=== PATIENT | female | born 1995 | race African-American/Black ===

== ENCOUNTER 2018-04-27 10:36 | Emergency (ER) | payer SELFPAY ==
[2018-04-27 10:37] VITALS: BP 116/74; PULSE 69; RESP 15; TEMP 36.4; O2SAT 100
[2018-04-27] MEDS: hydrOXYzine PAM 25 MG Capsule PO (11:06)
[2018-04-27 11:26] LABS: Anion Gap 8 (5-15); BUN 9 mg/dL (7-18); BUN/Creat Ratio 12.9 RATIO (10-20); Calcium,Total 8.6 mg/dL (8.5-10.1); Chloride 106 mmol/L (98-107); EST Glomerular Filtration Rate 114 mL/min (>60); Est Glom Filt Rate - Afr Amer 138 mL/min (>60); Estimated Creatinine Clearance 117.18 ml/min; Glucose 91 mg/dL (74-106); Potassium 3.9 mmol/L (3.5-5.1); Sodium Level 141 mmol/L (136-145)
[2018-04-27 11:28] LABS: Absolute Lymphocyte Count 1.32 X10^3/ul (0.83-4.51); Absolute Neutrophil Count 1.3 X10^3/uL (2.0-7.7); Basophil# 0.02 X10^3/uL; Basophil% 0.7 % (0-1); Eosinophil# 0.08 X10^3/uL; Eosinophils% 2.7 % (0-5); Hematocrit 39.1 % (37-47); Hemoglobin 12.7 g/dl (12.0-15.0); Lymphocyte # 1.32 X10^3/ul (4.0); Lymphocyte % 45.2 % (19-41); Mean Corp Hgb Conc 32.5 g/gl (32-36); Mean Corpuscular Hgb 28.8 pg (27.0-32.0); Mean Corpuscular Volume 88.7 fL (81-99); Mean Platelet Vol. 10.8 fl (6.2-12.0); Monocyte# 0.21 X10^3/uL; Monocyte% 7.2 % (0-10); Neutrophil # 1.29 X10^3/uL (2.7-7.7); Neutrophil % 44.2 % (47-70); Platelet Count 159 K/mm3 (150-450); RBC Distribution Width CV 12.5 % (11.6-14.6); RBC Distribution Width SD 40.2 fl (35.1-43.9); Red Blood Count 4.41 M/mm3 (4.2-5.4); White Blood Count 2.9 K/mm3 (4.4-11.0)
[2018-04-27 11:31] LABS: POSITIVE COUNT NO; POSITIVE DIFFERENTIAL NO; POSITIVE MORPHOLOGY NO
[2018-04-27 11:35] LABS: Pregnancy, Serum, hCG Quali. NEGATIVE Negative (0-9 Nonpreg)
--- NOTE | 2018-04-27 11:55 | ED.VISSUMM ---
- ER Visit Summary Date of Service: 04/27/18 Chief Complaint: Seizure History of Present Illness: The patient is a 22 F who presents with a seizure that occurred today while at work. Patient states she was under a lot of stress at work. 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 Patient remembers feeling like she was going to have a seizure. Patient then remembers waking up on the floor with paramedics standing over her. Patient denies biting her tongue. Patient denies any stool or urinary incontinence. Patient denies any chest pain or palpitations. Currently, patient admits to a mild left parietal headache. Patient states she did have a bitemporal headache earlier along with the left parietal headache. Patient states she was on a medication for anxiety which helped her seizures. Patient states she recently moved to the area and does not have that medication. Patient does not remember the name of that medication. Physical Examination: Vital signs are stable. Patient is afebrile. Patient is in no acute distress. Oral mucosa is pink and moist. Pupils are equal, round, and reactive to light bilaterally. Extraocular muscles are intact. Neck is supple. Trachea is midline. There is no JVD or lymphadenopathy noted. Heart was regular rate and rhythm. Lungs are clear and equal bilateral. There is good respiratory effort noted. Abdomen is soft. Bowel sounds are normal. There is no tenderness. Cranial nerves II through XII are intact. There are no focal motor or sensory deficits noted. Test Results: CBC and metabolic profile were within normal limits. Serum hCG was negative. Emergency Department Course and Treatment: Patient was given a dose of Vistaril here. Patient had no further seizure activity. Patient was instructed to follow-up with a primary care physician in 5-7 days. Patient was given a short prescription for Vistaril for anxiety. Patient understood and was agreeable with the plan. All questions were answered. Disposition: Discharged home Impression: Breakthrough seizure This note was generated with [employer] dictation software. It may contain incorrect words, spelling, and punctuation that were not noted in review of the chart prior to signing ED Disposition - Plan for ED Patient: Disposition: Home or Assisted Living Chief Complaint: Seizure Diagnosis: Seizure Instructions: ED Seizure Recurrent Prescriptions: hydrOXYzine pamoate capsule [Vistaril pamoate capsule] 25 mg PO TID PRN PRN 5 Days #15 cap PRN Reason: Anxiety Referrals: Elvin Mcconnell MD [STAFF PHYSICIAN] -
[2018-04-27 12:29] VITALS: BP 118/65; PULSE 70; RESP 14; O2SAT 99
== END 2018-04-27 12:33 | disposition home or self-care (01) ==
PROVIDERS: Emergency Provider Emergency Medicine
DX: R56.9 Unspecified convulsions (principal); J45.909 Unspecified asthma, uncomplicated; F20.9 Schizophrenia, unspecified; F31.9 Bipolar disorder, unspecified; F44.81 Dissociative identity disorder; F41.9 Anxiety disorder, unspecified; F43.10 Post-traumatic stress disorder, unspecified; X58.XXXA Exposure to other specified factors, initial encounter; Y93.9 Activity, unspecified; Y92.9 Unspecified place or not applicable; Y99.9 Unspecified external cause status
CPT/HCPCS: 80048; 84703; 85025; 99285; A4216

== ENCOUNTER 2018-05-19 10:34 | Emergency (ER) | payer SELFPAY ==
[2018-05-19 10:35] VITALS: BP 106/71; PULSE 82; RESP 18; TEMP 36.8; O2SAT 100; BMI 22.1
--- NOTE | 2018-05-19 10:49 | ED.DCSUM_ITS ---
- ER Visit Summary Date of Service: 05/19/18 Chief Complaint: Seizure History of Present Illness: The patient is a 22 F who states that she had a seizure. Happened at work today. She states she has a history of pseudoseizures caused by anxiety. 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 She states that she was given hydroxyzine and this helps. She was seen here a couple weeks ago for similar symptoms. She was given Vistaril at that time but she states that she is currently out of that medication. She has no PCP to follow-up with Physical Examination: Vital signs reviewed. HEENT exam unremarkable. Heart is regular rate and rhythm without murmurs. Lungs are clear to auscultation. Abdomen is soft and nontender. Extremities reveal no edema. Skin exam normal. Neurologic exam normal. Test Results: None performed Emergency Department Course and Treatment: Patient was given hydroxyzine here. I will give her the same for home. I will give her the name of the PCP to follow-up with. She has a history of this in the past but I do not feel any imaging or laboratory studies are necessary. Treatment Plan: [] Disposition: Discharge Impression: Pseudoseizure This note was generated with [employer] dictation software. It may contain incorrect words, spelling, and punctuation that were not noted in review of the chart prior to signing ED Disposition - Plan for ED Patient: Chief Complaint: Seizure Referrals: Care Physician,No Primary [Primary Care Provider] -
--- NOTE | 2018-05-19 10:49 | ED.DEP ---
ED Disposition - Plan for ED Patient: Disposition: Home or Assisted Living Chief Complaint: Seizure Instructions: ED Seizure Recurrent Prescriptions: hydrOXYzine pamoate capsule [Vistaril] 50 mg PO TID PRN PRN #30 cap PRN Reason: Anxiety Referrals: Care Physician,No Primary [Primary Care Provider] - Edgar Chiang DO [NON CLINICAL AFFILIATE] -
[2018-05-19] MEDS: hydrOXYzine PAM 25 MG Capsule PO (11:09)
[2018-05-19 11:45] LABS: Bacteria 0 SEEN /hpf (None Seen); Mucous, Urine 0 SEEN /hpf (<or=2+); Red Blood Cells-Urine 0 SEEN /hpf (0-5); Squamous Epithelial Cells - UA 0 SEEN /hpf (5-10)
[2018-05-19 11:46] LABS: Color, Urine Yellow (Yellow); Glucose, Dipstick Normal (Normal); Ketone-Dipstick Negative (Negative); Leukocyte Esterase-Dipstick 25 /ul (Negative); Nitrite-Dipstick Negative (Negative); Occult Blood-Urine Negative /ul (Negative); Protein-Dipstick 30 mg/dl (Negative); Urine Bilirubin Dipstick Negative (Negative); Urine Clarity Clear (Clear); Urine Urobilinogen 1 mg/dl (Normal)
[2018-05-19 11:52] LABS: White Blood Cells 0-5 SEEN /hpf (0-5)
[2018-05-19 11:53] LABS: Internal QC Validated? YES +Cl - CLEAR BKGD; Pregnancy, Urine Negative Negative
[2018-05-19 12:31] VITALS: BP 114/69; PULSE 78; RESP 18; O2SAT 100
== END 2018-05-19 12:33 | disposition home or self-care (01) ==
PROVIDERS: Emergency Provider Emergency Medicine
DX: F41.9 Anxiety disorder, unspecified (principal); R56.9 Unspecified convulsions; F17.290 Nicotine dependence, other tobacco product, uncomplicated; Z79.899 Other long term (current) drug therapy
CPT/HCPCS: 81001; 81025; 99284

== ENCOUNTER 2018-06-10 12:06 | Emergency (ER) | payer MEDICAID, SELFPAY ==
[2018-06-10 12:08] VITALS: BP 119/82; PULSE 75; RESP 12; TEMP 37.2; O2SAT 100
--- NOTE | 2018-06-10 12:57 | ED.VISSUMM ---
- ER Visit Summary Date of Service: 06/10/18 Chief Complaint: Seizure History of Present Illness: The patient is a 22 F with a history of pseudoseizures brought on by anxiety. 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 Per EMS note patient was initially postictal but quickly became alert and oriented. Patient was seen here earlier this month for the same. She was given a prescription for Vistaril which did help her symptoms. She ran out of this medication 1 week ago. She has an appointment to establish a new doctor in 2 days in [place]. Physical Examination: Vital signs unremarkable. Patient sitting upright in bed no acute distress. Head neck examination is unremarkable. There is no tongue bite injury. Heart is regular rate and rhythm. Lung sounds are clear. Abdomen is soft nontender. Neuro exam is normal. Test Results: [] Emergency Department Course and Treatment: Prior visits for similar were reviewed. Patient is given Vistaril here will be given a prescription for a short course. She is to follow-up in 2 days as planned. Patient does state that she has had a prior EEG that did not show any evidence of seizure activity. Treatment Plan: [] Disposition: Discharge Impression: Pseudoseizure This note was generated with [employer] dictation software. It may contain incorrect words, spelling, and punctuation that were not noted in review of the chart prior to signing ED Disposition - Plan for ED Patient: Chief Complaint: Seizure Referrals: Care Physician,No Primary [Primary Care Provider] -
--- NOTE | 2018-06-10 12:59 | ED.DEP ---
ED Disposition - Plan for ED Patient: Disposition: Home or Assisted Living Chief Complaint: Seizure Instructions: ED Seizure Recurrent Prescriptions: Hydroxyzine Pamoate [Vistaril] 50 mg PO TID PRN PRN #30 capsule PRN Reason: Anxiety Additional Instructions: Follow-up on Monday as scheduled.
[2018-06-10 13:22] VITALS: BP 105/67; PULSE 70; RESP 22; O2SAT 100
[2018-06-10] MEDS: hydrOXYzine PAM 25 MG Capsule 50 MG PO (13:22)
== END 2018-06-10 13:26 | disposition home or self-care (01) ==
PROVIDERS: Emergency Provider Emergency Medicine
DX: R56.9 Unspecified convulsions (principal); F20.9 Schizophrenia, unspecified; F31.9 Bipolar disorder, unspecified; F60.9 Personality disorder, unspecified; F41.9 Anxiety disorder, unspecified; Z79.899 Other long term (current) drug therapy
CPT/HCPCS: 99284

== ENCOUNTER 2018-06-30 19:05 | Emergency (ER) | payer MEDICAID, SELFPAY ==
[2018-06-30 19:07] VITALS: BP 113/66; PULSE 92; RESP 18; TEMP 36.8; O2SAT 98; BMI 20.9
--- NOTE | 2018-06-30 19:45 | ED.DEP ---
ED Disposition - Plan for ED Patient: Chief Complaint: Seizure Instructions: ED Seizure Recurrent Referrals: Care Physician,No Primary [Primary Care Provider] -
--- NOTE | 2018-06-30 19:55 | ED.DCSUM_ITS ---
- ER Visit Summary Date of Service: 06/30/18 Chief Complaint: Seizure History of Present Illness: The patient is a 22 F presents after seizure at work. She was at work and EMS was called. She states she was working and then woke up on the floor. She did not bite her tongue. She had no urinary incontinence. She had no injury. She has a history of pseudoseizures secondary to anxiety. She states she took her Vistaril today. She is not feeling anxious now. She denies suicidal ideation. Denies drug use. She has an appointment with her primary care physician this week. She feels back to baseline. Physical Examination: Vitals are stable. Patient is afebrile. Alert no acute distress. HEENT exam is unremarkable. Neck is supple. Lungs are clear and equal bilaterally. Heart is regular rate and rhythm. Abdomen is soft nontender nondistended. Extremities are unremarkable. Skin is warm and dry. No focal neurologic deficit. Remainder of exam is unremarkable. Emergency Department Course and Treatment: BGT was 89 per EMS. Patient feels well and would like to go home. She does not feel anxious. She has an appointment with her primary care physician this week. She will keep this appointment. She is advised return to ED for any worsening complaints. Disposition: Discharge home Impression: Seizure, history of pseudoseizures This note was generated with [employer] dictation software. It may contain incorrect words, spelling, and punctuation that were not noted in review of the chart prior to signing ED Disposition - Plan for ED Patient: Chief Complaint: Seizure Instructions: ED Seizure Recurrent Referrals: Care Physician,No Primary [NON-STAFF] -
[2018-06-30 20:01] VITALS: BP 100/87; PULSE 75; RESP 15; O2SAT 98
== END 2018-06-30 20:02 | disposition home or self-care (01) ==
LOC: ED 19:50
PROVIDERS: Emergency Provider Emergency Medicine; Family Provider Family Medicine; PCP Family Medicine
DX: R56.9 Unspecified convulsions (principal); F32.9 Major depressive disorder, single episode, unspecified; F41.9 Anxiety disorder, unspecified; F17.290 Nicotine dependence, other tobacco product, uncomplicated; Z79.899 Other long term (current) drug therapy
CPT/HCPCS: 99284; A4216

== ENCOUNTER 2018-07-10 10:46 | Emergency (ER) | payer MEDICAID, SELFPAY ==
[2018-07-10 10:47] VITALS: BP 123/76; PULSE 81; RESP 16; TEMP 37.1; O2SAT 99; BMI 20.6
--- NOTE | 2018-07-10 10:54 | ED.VISSUMM ---
- ER Visit Summary Date of Service: 07/10/18 Chief Complaint: Cough, ear pain History of Present Illness: The patient is a 22 F presents to the emergency department with 3 days of URI symptoms. Patient states she developed a scant cough and mild sore throat. States over the past 2 days, she had worsening pain mostly in her left ear. She is unsure if she has had fever but does admit to chills and sweats. She has not taken anything for her symptoms. She denies any shortness of breath. She has no history of immunosuppression. Physical Examination: Exam is relatively unremarkable. Well-appearing female no acute distress. Lungs are clear without wheezes or rhonchi. Posterior oropharynx is widely patent. Left TM does show erythema with distortion of the landmarks but there is no perforation. There is no mastoid tenderness. Right TM is unremarkable. Test Results: [] Emergency Department Course and Treatment: The patient does have evidence of a left otitis media. She will be treated with amoxicillin. I have no suspicion for other dangerous process. She was counseled on concerning symptoms and reasons to return. Treatment Plan: [] Disposition: Discharge Impression: Left otitis media This note was generated with [employer] dictation software. It may contain incorrect words, spelling, and punctuation that were not noted in review of the chart prior to signing ED Disposition - Plan for ED Patient: Chief Complaint: General Illness Instructions: ED Otitis Media Acute Adult Prescriptions: Amoxicillin 500 mg PO TID #30 tab Referrals: Reji Willingham MD [Primary Care Provider] -
== END 2018-07-10 11:02 | disposition home or self-care (01) ==
LOC: ED 11:01
PROVIDERS: Emergency Provider Emergency Medicine; Family Provider Family Medicine; PCP Family Medicine
DX: H66.92 Otitis media, unspecified, left ear (principal); R05 Cough; Z72.0 Tobacco use; Z79.899 Other long term (current) drug therapy
CPT/HCPCS: 99282

== ENCOUNTER 2018-07-14 12:03 | Emergency (ER) | payer MEDICAID, SELFPAY ==
[2018-07-14 12:06] VITALS: BP 116/78; PULSE 61; RESP 12; TEMP 36.8; O2SAT 100; BMI 21.2
[2018-07-14 12:40] VITALS: BP 107/70; PULSE 88; RESP 17; O2SAT 100
[2018-07-14] MEDS: predniSONE 20 MG Tablet 40 MG PO (12:40)
[2018-07-14] MEDS: DiphenhydrAMINE 25 MG Capsule PO (12:40)
--- NOTE | 2018-07-14 13:41 | ED.VISSUMM ---
- ER Visit Summary Date of Service: 07/14/18 Chief Complaint: [Allergic reaction to bee sting] History of Present Illness: The patient is a 22 F [presents the emergency department via EMS with complaint of allergic reaction secondary to a bee sting. 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 Patient recalls seeing a bee flying around the window prior to that. Patient states that she began feeling short of breath and felt hot and flushed therefore she used her EpiPen. Patient called EMS. On arrival she is feeling improved. There was no rash at any point. Patient currently denies any lip or tongue swelling or difficulty breathing.] Physical Examination: [HEENT-PERRLA, EOMI. Cranial nerves II through XII grossly intact. TMs clear. Mucous membranes moist. No adenopathy. Cardiovascular-regular rate and rhythm without murmur or ectopy Lungs-clear to auscultation, chest wall stable without crepitus or subcu emphysema Abdomen-normoactive bowel sounds, soft, nontender, no rebound or rigidity, no peritoneal signs. Extremities-intact ?4, normal range of motion, normal pulses, atraumatic]. Patient has a very small punctate area of erythema on the inner aspect of the elbow otherwise there is no rashes. Test Results: [None indicated] Emergency Department Course and Treatment: [Patient was given prednisone 40 mg p.o. and Benadryl 25 mg p.o. Patient was observed in the department for approximately 2 hours and she had no symptoms of allergic reaction otherwise.] Treatment Plan: [Patient will be given a prescription for prednisone for 3 days] Disposition: [Discharged home in stable condition] Impression: [Allergic reaction to bee sting] This note was generated with [employer] dictation software. It may contain incorrect words, spelling, and punctuation that were not noted in review of the chart prior to signing ED Disposition - Plan for ED Patient: Chief Complaint: Allergic Reaction Referrals: Reji Willingham MD [Primary Care Provider] -
--- NOTE | 2018-07-14 13:43 | ED.DEP ---
ED Disposition - Plan for ED Patient: Chief Complaint: Allergic Reaction Instructions: ED Bite Sting Insect Gen Allergic React Prescriptions: Prednisone [Deltasone] 20 mg PO BID #6 tab Referrals: Reji Willingham MD [Primary Care Provider] - As Needed
[2018-07-14 13:54] VITALS: BP 103/70; PULSE 77; RESP 16; O2SAT 97
== END 2018-07-14 13:54 | disposition home or self-care (01) ==
PROVIDERS: Emergency Provider Emergency Medicine; Family Provider Family Medicine; PCP Family Medicine
DX: T63.441A Toxic effect of venom of bees, accidental (unintentional), initial encounter (principal); R06.02 Shortness of breath; Y92.9 Unspecified place or not applicable; F43.10 Post-traumatic stress disorder, unspecified; F31.9 Bipolar disorder, unspecified; F41.9 Anxiety disorder, unspecified; F90.9 Attention-deficit hyperactivity disorder, unspecified type; Z79.899 Other long term (current) drug therapy
CPT/HCPCS: 99284

== ENCOUNTER 2018-08-01 18:13 | Emergency (ER) | payer MEDICAID, SELFPAY ==
[2018-08-01 18:15] VITALS: BP 113/70; PULSE 70; RESP 17; TEMP 36.5; O2SAT 100; BMI 21.7
--- NOTE | 2018-08-01 18:31 | CT_ITS ---
STUDY: CT ABDOMEN AND PELVIS WITH CONTRAST REASON FOR EXAM: Female, 22 years old. Diffuse abdominal pain. RADIATION DOSAGE (If Supplied By Facility): CTDIvol = ( 7.57 ) mGy, DLP = ( 468.17 ) mGycm TECHNIQUE: Transaxial images were obtained post I.V. administration of 100 ml of Isovue 300 contrast, and oral contrast. Sagittal and coronal images were reconstructed. # of Images: 361 Individualized dose optimization techniques were used for this CT. COMPARISON: None. FINDINGS: The visualized lung bases are unremarkable. The visualized portions of the heart are within normal limits. Normal liver. Normal gallbladder and extrahepatic biliary system. Normal spleen. Normal pancreas. Normal bilateral adrenal glands. There is mild right-sided hydronephrosis. Normal left kidney. The uterus is slightly right of midline. There is a small amount of free fluid within the pelvis which may be physiologic. Normal visualized stomach. Normal small intestine. There is a moderate amount of stool and gas throughout the colon and rectum. The appendix is visualized and appears normal. Normal abdominal aorta. Normal inferior vena cava. Normal retroperitoneum. Normal abdominal wall. Normal osseous structures. CT/Abdomen/Pelvis WITH Contrast IMPRESSION: Moderate amount of stool and gas throughout the colon and rectum. Mild right-sided hydronephrosis of uncertain etiology. Electronically Signed: Olivia Terry MD at 20:57 EDT Tel , Service support ,
--- NOTE | 2018-08-01 18:32 | ED.VISSUMM ---
- ER Visit Summary Date of Service: 08/01/18 Chief Complaint: Abdominal pain History of Present Illness: The patient is a 22 F presenting with right lower quadrant abdominal pain. This has been ongoing for the past 2 days. Pain is sharp in the right lower quadrant. She states it occasionally is in her right lower back as well. She denies dysuria or hematuria. She has nausea with no vomiting. Denies diarrhea or constipation. Denies fever. She has had a normal appetite today. Denies possibility of . Physical Examination: Vitals are stable. Patient is afebrile. Alert no acute distress. HEENT exam is unremarkable. Neck is supple. Lungs are clear and equal bilaterally. Heart is regular rate and rhythm. Abdomen is soft right and left lower quadrant tenderness with no guarding or rebound Extremities are unremarkable. Skin is warm and dry. No focal neurologic deficit. Remainder of exam is unremarkable. Emergency Department Course and Treatment: Patient is given morphine, Zofran IV. CBC, chemistries unremarkable. Urinalysis unremarkable. HCG negative. CT abdomen pelvis shows moderate amount of stool and gas throughout the colon and rectum. Mild right-sided hydronephrosis of uncertain etiology. Patient is resting comfortably on repeat evaluation. She is advised to follow-up with urology. Advised return to the ED for worsening complaints. Disposition: Discharge home Impression: Abdominal pain, constipation, right-sided hydronephrosis This note was generated with [employer] dictation software. It may contain incorrect words, spelling, and punctuation that were not noted in review of the chart prior to signing ED Disposition - Plan for ED Patient: Chief Complaint: Abd Pain Instructions: ED Abdominal Pain Unkn Cause Referrals: Reji Willingham MD [Primary Care Provider] - Maranda Andrea MD [STAFF PHYSICIAN] -
[2018-08-01] MEDS: Ondansetron 4 MG/2 ML Vial IV (18:43)
[2018-08-01] MEDS: Morphine 4 MG/ML Syringe IV (18:43)
[2018-08-01 18:56] LABS: Mucous, Urine 0 SEEN /hpf (<or=2+); Red Blood Cells-Urine 0 SEEN /hpf (0-5)
[2018-08-01 18:58] LABS: Color, Urine Yellow (Yellow); Glucose, Dipstick Normal (Normal); Ketone-Dipstick Negative (Negative); Leukocyte Esterase-Dipstick 25 /ul (Negative); Nitrite-Dipstick Negative (Negative); Occult Blood-Urine Negative /ul (Negative); Protein-Dipstick 30 mg/dl (Negative); Urine Bilirubin Dipstick Negative (Negative); Urine Clarity Sl. Cloudy (Clear); Urine Urobilinogen 1 mg/dl (Normal)
[2018-08-01 19:00] LABS: Absolute Lymphocyte Count 1.68 X10^3/ul (0.83-4.51); Absolute Neutrophil Count 2.3 X10^3/uL (2.0-7.7); Basophil# 0.02 X10^3/uL; Basophil% 0.4 % (0-1); Eosinophil# 0.13 X10^3/uL; Eosinophils% 2.9 % (0-5); Hematocrit 38.2 % (37-47); Hemoglobin 12.4 g/dl (12.0-15.0); Lymphocyte # 1.68 X10^3/ul (4.0); Lymphocyte % 37.8 % (19-41); Mean Corp Hgb Conc 32.5 g/gl (32-36); Mean Corpuscular Hgb 28.2 pg (27.0-32.0); Mean Corpuscular Volume 86.8 fL (81-99); Mean Platelet Vol. 10.5 fl (6.2-12.0); Monocyte# 0.29 X10^3/uL; Monocyte% 6.5 % (0-10); Neutrophil # 2.33 X10^3/uL (2.7-7.7); Neutrophil % 52.4 % (47-70); POSITIVE COUNT NO; POSITIVE DIFFERENTIAL NO; POSITIVE MORPHOLOGY NO; Platelet Count 180 K/mm3 (150-450); RBC Distribution Width CV 12.2 % (11.6-14.6); RBC Distribution Width SD 39.1 fl (35.1-43.9); White Blood Count 4.5 K/mm3 (4.4-11.0)
[2018-08-01 19:20] LABS: Anion Gap 5 (5-15); BUN 9 mg/dL (7-18); Calcium,Total 8.6 mg/dL (8.5-10.1); Chloride 106 mmol/L (98-107); Creatinine, Serum 0.75 mg/dL (0.55-1.02); EST Glomerular Filtration Rate 104 mL/min (>60); Est Glom Filt Rate - Afr Amer 126 mL/min (>60); Estimated Creatinine Clearance 112.01 ml/min; Glucose 85 mg/dL (74-106); Potassium 3.6 mmol/L (3.5-5.1); Sodium Level 138 mmol/L (136-145)
[2018-08-01 19:25] LABS: Bacteria 2+ /hpf (None Seen); Squamous Epithelial Cells - UA 0-5 SEEN /hpf (5-10); White Blood Cells 0-5 SEEN /hpf (0-5)
[2018-08-01 19:37] LABS: Pregnancy, Serum, hCG Quali. NEGATIVE Negative (0-9 Nonpreg)
[2018-08-01 20:16] VITALS: RESP 18
--- NOTE | 2018-08-01 21:19 | ED.DEP ---
ED Disposition - Plan for ED Patient: Chief Complaint: Abd Pain Instructions: ED Abdominal Pain Unkn Cause Referrals: Reji Willingham MD [Primary Care Provider] - Maranda Andrea MD [STAFF PHYSICIAN] -
[2018-08-01 21:32] VITALS: BP 108/78; PULSE 71; RESP 16; O2SAT 98
== END 2018-08-01 21:34 | disposition home or self-care (01) ==
LOC: ED 19:19
PROVIDERS: Emergency Provider Emergency Medicine; Family Provider Family Medicine; PCP Family Medicine
DX: R10.31 Right lower quadrant pain (principal); K59.00 Constipation, unspecified; N13.30 Unspecified hydronephrosis; J45.909 Unspecified asthma, uncomplicated; R56.9 Unspecified convulsions; Z79.899 Other long term (current) drug therapy
CPT/HCPCS: 74177; 80048; 81001; 84703; 85025; 96374; 96375; 99283; Q9967; A4216; J2405

== ENCOUNTER 2018-08-12 15:16 | Emergency (ER) | payer MEDICAID, SELFPAY ==
[2018-08-12 15:17] VITALS: BP 115/77; PULSE 86; RESP 19; TEMP 36.6; O2SAT 100; BMI 21.7
--- NOTE | 2018-08-12 15:45 | ED.VISSUMM ---
- ER Visit Summary Date of Service: 08/12/18 Chief Complaint: Seizure History of Present Illness: The patient is a 22 F who presents after a seizure that occurred today while at work. Patient states that she was not allowed to take her seizure medicine at her normal time because she was at work. Patient states she had a typical seizure for her. Patient does not remember any events during the seizure but remembers waking up after the seizure. Patient states she felt like she was going to have a seizure prior to having the seizure. Patient denies biting her tongue. Patient denies any urinary or stool incontinence. Patient states she takes hydroxyzine for her seizures because they are caused by her anxiety. Physical Examination: Vital signs are stable. Patient is afebrile. Patient is in no acute distress. Cranial nerves II through XII are intact. Strength is 5/5 bilateral in the upper and lower extremities. There are no sensory deficits noted. Pupils are equal, round, reactive to light bilaterally. Extraocular muscles are intact. Oral mucosa is pink and moist. There are no abrasions or lacerations noted. Neck is supple. Trachea is midline. There is no JVD noted. Heart was regular rate and rhythm. Lungs are clear and equal bilateral. There is good respiratory effort noted. Abdomen is soft and nontender. Bowel sounds are normal. The remaining physical exam is within normal limits. Test Results: CBC, basic metabolic profile, urinalysis, urine hCG were obtained and were within normal limits. Emergency Department Course and Treatment: Patient was observed in the emergency department and did not have any further seizure activity. Patient felt better on reevaluation. Patient was instructed to follow-up with her primary care physician in 5-7 days for possible adjustments in her medications. Patient understood and was agreeable with the plan. All questions were answered. Disposition: Discharge home Impression: Seizure disorder with breakthrough seizure This note was generated with [employer] dictation software. It may contain incorrect words, spelling, and punctuation that were not noted in review of the chart prior to signing ED Disposition - Plan for ED Patient: Disposition: Home or Assisted Living Chief Complaint: Seizure Diagnosis: Seizure disorder Instructions: ED Seizure Recurrent Referrals: Reji Willingham MD [Primary Care Provider] -
--- NOTE | 2018-08-12 15:50 | ED.DCSUM_ITS ---
- ER Visit Summary Date of Service: 08/12/18 Chief Complaint: Seizure History of Present Illness: The patient is a 22 F who presents after a seizure that occurred today while at work. Patient states that she was not allowed to take her seizure medicine at her normal time because she was at work. Patient s tates she had a typical seizure for her. Patient does not remember any events during the seizure but remembers waking up after the seizure. Patient states she felt like she was going to have a seizure prior to having the seizure. Patient denies biting her tongue. Patient denies any urinary or stool incontinence. Patient states she takes hydroxyzine for her seizures because they are caused by her anxiety. Physical Examination: Vital signs are stable. Patient is afebrile. Patient is in no acute distress. Cranial nerves II through XII are intact. Strength is 5/5 bilateral in the upper and lower extremities. There are no sensory deficits noted. Pupils are equal, round, reactive to light bilaterally. Extraocular muscles are intact. Oral mucosa is pink and moist. There are no abrasions or lacerations noted. Neck is supple. Trachea is midline. There is no JVD noted. Heart was regular rate and rhythm. Lungs are clear and equal bilateral. There is good respiratory effort noted. Abdomen is soft and nontender. Bowel sounds are normal. The remaining physical exam is within normal limits. Test Results: CBC, basic metabolic profile, urinalysis, urine hCG were obtained and were within normal limits. Emergency Department Course and Treatment: Patient was observed in the emergency department and did not have any further seizure activity. Patient felt better on reevaluation. Patient was instructed to follow-up with her primary care physician in 5-7 days for possible adjustments in her medications. Patient understood and was agreeable with the plan. All questions were answered. Disposition: Discharge home Impression: Seizure disorder with breakthrough seizure This note was generated with [employer] dictation software. It may contain incorrect words, spelling, and punctuation that were not noted in review of the chart prior to signing ED Disposition - Plan for ED Patient: Disposition: Home or Assisted Living Chief Complaint: Seizure Diagnosis: Seizure disorder Instructions: ED Seizure Recurrent Referrals: Reji Willingham MD [Primary Care Provider] -
[2018-08-12 16:10] LABS: Absolute Lymphocyte Count 1.52 X10^3/ul (0.83-4.51); Absolute Neutrophil Count 1.7 X10^3/uL (2.0-7.7); Basophil# 0.02 X10^3/uL; Basophil% 0.6 % (0-1); Eosinophils% 2.8 % (0-5); Hematocrit 33.3 % (37-47); Hemoglobin 11.1 g/dl (12.0-15.0); Lymphocyte # 1.52 X10^3/ul (4.0); Lymphocyte % 42.3 % (19-41); Mean Corp Hgb Conc 33.3 g/gl (32-36); Mean Corpuscular Hgb 28.7 pg (27.0-32.0); Mean Platelet Vol. 10.8 fl (6.2-12.0); Monocyte# 0.23 X10^3/uL; Monocyte% 6.4 % (0-10); Neutrophil # 1.72 X10^3/uL (2.7-7.7); Neutrophil % 47.9 % (47-70); POSITIVE COUNT NO; POSITIVE DIFFERENTIAL NO; POSITIVE MORPHOLOGY NO; Platelet Count 154 K/mm3 (150-450); RBC Distribution Width CV 12.2 % (11.6-14.6); RBC Distribution Width SD 37.8 fl (35.1-43.9); Red Blood Count 3.87 M/mm3 (4.2-5.4); White Blood Count 3.6 K/mm3 (4.4-11.0)
[2018-08-12 16:21] LABS: Anion Gap 7 (5-15); BUN 10 mg/dL (7-18); BUN/Creat Ratio 12.9 RATIO (10-20); Calcium,Total 8.8 mg/dL (8.5-10.1); Chloride 105 mmol/L (98-107); Creatinine, Serum 0.77 mg/dL (0.55-1.02); EST Glomerular Filtration Rate 100 mL/min (>60); Est Glom Filt Rate - Afr Amer 121 mL/min (>60); Glucose 92 mg/dL (74-106); Potassium 3.4 mmol/L (3.5-5.1); Sodium Level 137 mmol/L (136-145)
[2018-08-12 16:58] LABS: Bacteria 0 SEEN /hpf (None Seen); Mucous, Urine 0 SEEN /hpf (<or=2+); Red Blood Cells-Urine 0 SEEN /hpf (0-5)
--- NOTE | 2018-08-12 17:06 | ED.RN ---
pt ambulate to restroom steady, but slow gait. walked back to room and placed back in bed with padded side rails in place. blessing alexander rn
[2018-08-12 17:14] LABS: Internal QC Validated? YES +Cl - CLEAR BKGD; Pregnancy, Urine Negative Negative
[2018-08-12 17:17] LABS: Color, Urine Yellow (Yellow); Glucose, Dipstick Normal (Normal); Ketone-Dipstick Negative (Negative); Leukocyte Esterase-Dipstick 25 /ul (Negative); Nitrite-Dipstick Negative (Negative); Occult Blood-Urine Negative /ul (Negative); Protein-Dipstick 15 mg/dl (Negative); Specific Gravity, Urine 1.015 (1.002-1.030); Urine Bilirubin Dipstick Negative (Negative); Urine Clarity Clear (Clear); Urine Urobilinogen Normal (Normal)
[2018-08-12 17:24] VITALS: BP 94/79; PULSE 94; RESP 24; O2SAT 100
[2018-08-12 17:33] LABS: Squamous Epithelial Cells - UA 5-10 SEEN /hpf (5-10); White Blood Cells 0-5 SEEN /hpf (0-5)
[2018-08-12 19:07] VITALS: BP 106/58; PULSE 72; RESP 15; O2SAT 99
--- NOTE | 2018-08-28 09:21 | EEG_ITS ---
- Electroencephalogram Date of service 08/27/18 This is an 18 channel electroencephalogram performed with EKG reference leads photic stimulation and hyperventilation utilizing the International 10-20 electrode placement protocol on this of seizures. It is noted that the patient is on hydroxyzine as well as Dilantin. Background activity does demonstrate bet a range activity which is likely medication effect, as well as muscle artifact. There appears to be an 8 Hz background activity, this does not clearly attenuate with eye opening however. Hyperventilation is performed for 2 minutes with good effort with no lateralizing or epileptiform changes and the post hyperventilatory phase is unremarkable. The patient experienced wakefulness and sleep during the recording without lateralizing or epileptiform changes and photic stimulation generates a normal symmetric driving response in the posterior leads bilaterally. EKG is sinus throughout. Impression: There is beta range activity which is likely medication effect. There are no lateralizing or epileptiform changes noted.
== END 2018-08-12 19:16 | disposition home or self-care (01) ==
PROVIDERS: Emergency Provider Emergency Medicine; Family Provider Family Medicine; PCP Family Medicine
DX: G40.909 Epilepsy, unspecified, not intractable, without status epilepticus (principal); F41.9 Anxiety disorder, unspecified; Z79.899 Other long term (current) drug therapy
CPT/HCPCS: 80048; 81001; 81025; 85025; 99285

== ENCOUNTER → 2018-08-22 13:10 | Outpatient (CLI) | payer MEDICAID, SELFPAY ==
--- NOTE | 2018-08-22 13:16 | RAD_ITS ---
STUDY: X-RAY - LEFT HAND REASON FOR EXAM: Female, 22 years old. Injury TECHNIQUE: 3 view(s) of the hand. COMPARISON: None. FINDINGS: Normal radiocarpal articulation. Normal distal radioulnar joint. Normal visualized carpal bones. Normal carpal articulations Normal carpometacarpal articulation of the thumb. Normal second through fifth carpometacarpal joints. Normal metacarpi. Normal metacarpophalangeal joint of the thumb. Normal interphalangeal joint of the thumb. Normal proximal and distal phalanges of the thumb. Normal metacarpophalangeal joints of the second through fifth fingers. Normal proximal and distal interphalangeal joints of the second through fifth fingers. Normal phalanges of the second through fifth fingers. The soft tissue structures are unremarkable. RAD/Hand Min 3 Views IMPRESSION: Normal x-ray examination of the hand. No fracture Electronically Signed: Michael Begum MD at 3:17 EST Tel , Service support ,
== END ==
PROVIDERS: Family Provider Family Medicine; PCP Family Medicine; Referring Provider Physician Assistant; Visit Provider Physician Assistant
DX: S60.222A Contusion of left hand, initial encounter (principal); S60.00XA Contusion of unspecified finger without damage to nail, initial encounter; X58.XXXA Exposure to other specified factors, initial encounter; Y93.9 Activity, unspecified; Y92.9 Unspecified place or not applicable; Y99.9 Unspecified external cause status
CPT/HCPCS: 73130

== ENCOUNTER → 2018-08-27 07:55 | Outpatient (CLI) | payer MEDICAID, SELFPAY | PROVIDERS: Family Provider Family Medicine; PCP Family Medicine; Referring Provider Family Medicine; Visit Provider Family Medicine | DX: R56.9 Unspecified convulsions (principal) ==

== ENCOUNTER 2019-01-30 22:13 | Emergency (ER) | payer MEDICAID, SELFPAY ==
[2019-01-30 22:14] VITALS: BP 115/75; PULSE 104; RESP 19; TEMP 37.3; O2SAT 94
--- NOTE | 2019-01-30 22:33 | CT_ITS ---
STUDY: CT BRAIN WITHOUT CONTRAST REASON FOR EXAM: Female, 23 years old. Seizure. RADIATION DOSAGE (If Supplied By Facility): CTDIvol = ( 44.99 ) mGy, DLP = ( 779.24 ) mGycm TECHNIQUE: Transaxial CT imaging of the brain was performed without administration of intravenous contrast material. Multiplanar reformations are submitted for interpretation. Individualized dose optimization techniques were used for this CT. COMPARISON: No relevant priors. FINDINGS: Normal soft tissue structures. Normal calvarium. Normal size ventricles and extra-axial spaces for the patient's age. Normal white matter tracts of the cerebral hemispheres. Normal basal ganglia and thalami. Normal brainstem. Normal cerebellum. There is no intracranial hemorrhage. There are no findings of an acute ischemic infarction. Normal visualized paranasal sinuses. CT/Brain/Head without Contrast IMPRESSION: No CT evidence of acute intracranial hemorrhage. Electronically Signed: Shelby Clark MD at 23:32 EDT , Service support ,
--- NOTE | 2019-01-30 22:34 | CT_ITS ---
STUDY: CT CERVICAL SPINE WITHOUT CONTRAST REASON FOR EXAM: Female, 23 years old. Seizure. RADIATION DOSAGE (If Supplied By Facility): CTDIvol = ( 15.19 ) mGy, DLP = ( 348.04 ) mGycm TECHNIQUE: High resolution transaxial imaging was performed without contrast material. Sagittal and coronal images were reconstructed. Individualized dose optimization techniques were used for this CT. COMPARISON: None FINDINGS: Normal craniovertebral junction. Normal anterior atlantoaxial articulation. Normal odontoid process. Normal cervical lordosis. Normal vertebral bodies and posterior osseous elements. C2-3: Normal endplates. Normal disc height and morphology. Normal central canal and intervertebral neuroforamina. C3-4: Normal endplates. Normal disc height and morphology. Normal central canal and intervertebral neuroforamina. C4-5: Normal endplates. Normal disc height and morphology. Normal central canal and intervertebral neuroforamina. C5-6: Normal endplates. Normal disc height and morphology. Normal central canal and intervertebral neuroforamina. C6-7: Normal endplates. Normal disc height and morphology. Normal central canal and intervertebral neuroforamina. C7-T1: Normal endplates. Normal disc height and morphology. Normal central canal and intervertebral neuroforamina. Normal visualized soft tissue structures. CT/Spine Cervical without Contras IMPRESSION: No CT evidence of acute compression or displaced fracture. Electronically Signed: Shelby Clark MD at 23:35 EDT , Service support ,
[2019-01-30 22:50] LABS: Absolute Lymphocyte Count 2.07 X10^3/ul (0.83-4.51); Absolute Neutrophil Count 3.3 X10^3/uL (2.0-7.7); Basophil# 0.02 X10^3/uL; Basophil% 0.3 % (0-1); Eosinophil# 0.15 X10^3/uL; Eosinophils% 2.5 % (0-5); Hematocrit 37.7 % (37-47); Hemoglobin 12.9 g/dl (12.0-15.0); Lymphocyte # 2.07 X10^3/ul (4.0); Lymphocyte % 34.1 % (19-41); Mean Corp Hgb Conc 34.2 g/gl (32-36); Mean Corpuscular Hgb 29.3 pg (27.0-32.0); Mean Corpuscular Volume 85.5 fL (81-99); Mean Platelet Vol. 11.3 fl (6.2-12.0); Monocyte# 0.55 X10^3/uL; Monocyte% 9.1 % (0-10); Neutrophil # 3.28 X10^3/uL (2.7-7.7); POSITIVE COUNT NO; POSITIVE DIFFERENTIAL NO; POSITIVE MORPHOLOGY NO; Platelet Count 183 K/mm3 (150-450); RBC Distribution Width CV 12.3 % (11.6-14.6); RBC Distribution Width SD 37.9 fl (35.1-43.9); Red Blood Count 4.41 M/mm3 (4.2-5.4); White Blood Count 6.1 K/mm3 (4.4-11.0)
[2019-01-30] MEDS: fentaNYL 100 MCG/2 ML Ampul 25 MCG IV (22:50)
[2019-01-30] MEDS: LORazepam 2 MG/ML Syringe 0.5 MG IV (22:50)
[2019-01-30] MEDS: 0.9% Normal Saline 1,000 ML 150 ML IV (22:50)
[2019-01-30 22:56] LABS: Internal QC Validated? YES +Cl - CLEAR BKGD; Pregnancy, Serum, hCG Quali. NEGATIVE Negative
[2019-01-30 23:02] LABS: Anion Gap 7 (5-15); BUN 9 mg/dL (7-18); Calcium,Total 8.6 mg/dL (8.5-10.1); Chloride 107 mmol/L (98-107); Creatinine, Serum 0.82 mg/dL (0.55-1.02); EST Glomerular Filtration Rate 94 mL/min (>60); Est Glom Filt Rate - Afr Amer 114 mL/min (>60); Estimated Creatinine Clearance 99.47 ml/min; Glucose 104 mg/dL (74-106); Potassium 3.3 mmol/L (3.5-5.1); Sodium Level 140 mmol/L (136-145)
[2019-01-30 23:07] LABS: Phenytoin (Dilantin) Level 1.1 mL (10.0-20.0)
--- NOTE | 2019-01-31 00:52 | ED.VISSUMM ---
- ER Visit Summary Date of Service: 01/31/19 Chief Complaint: Seizure History of Present Illness: The patient is a 23 F reports having 6 seizures tonight. Her last seizure was 2 weeks ago. She is currently on Dilantin and does admit to missing some doses recently. She does not know the last time her Dilantin level was checked. She admits that her seizure activity is never been caught on EEGs in the past. She is currently complaining of neck pain. Of note when I saw this patient in May 2018 she stated that she had a history of pseudoseizures brought on by anxiety. At that time she is on Vistaril. She states her doctor switched her to Dilantin but she has not yet seen another specialist. Physical Examination: Vital signs unremarkable. Patient sitting upright in bed. She is intermittently tearful. Head neck examination reveals muscular tenderness throughout the cervical region. C-collar is in place per EMS. Heart is regular rate and rhythm. Lung sounds are clear. Abdomen is soft and nontender. Neuro exam reveals normal strength and sensation on testing. Test Results: CBC and chemistry studies are significant only for potassium slightly low at 3.3. Her Dilantin level is 1.1. test is negative. Emergency Department Course and Treatment: Patient was given IV Ativan and a small dose of fentanyl for pain. CT scan of the head is normal. CT the C-spine shows no compression fracture. Test results are discussed with the patient. She does admit to missing several doses of her Dilantin. She is given 500 mg IV. She is instructed to take her scheduled dosing and have her level rechecked by her doctor next week. She will be referred to neurology for follow-up. Treatment Plan: [] Disposition: Discharge Impression: 1. Reported seizure with medication noncompliance 2. Cervical muscular strain This note was generated with [employer] dictation software. It may contain incorrect words, spelling, and punctuation that were not noted in review of the chart prior to signing ED Disposition - Plan for ED Patient: Disposition: Home or Assisted Living Instructions: ED Seizure Recurrent Referrals: Stephon Dumont MD [STAFF PHYSICIAN] - As soon as possible Additional Instructions: As discussed, take your Dilantin regularly. Have your Dilantin level rechecked next week.
[2019-01-31 01:10] VITALS: BP 105/57; PULSE 82; RESP 18; O2SAT 97
--- NOTE | 2019-01-31 01:10 | ED.RN ---
THIS NURSE REVIEWED D/C INSTRUCTION WITH PT AND VISITOR. BOTH VERBALIZED UNDERSTANDING OF INSTRUCTIONS. IV D/C. IV CATHETER INTACT. PT TOLERATED WELL. PT ASSISTED TO VEHICLE VIA W/C AND STAFF ASSISTANCE
== END 2019-01-31 01:11 | disposition home or self-care (01) ==
PROVIDERS: Emergency Provider Emergency Medicine
DX: R56.9 Unspecified convulsions (principal); Z91.14 Patient's other noncompliance with medication regimen; S16.1XXA Strain of muscle, fascia and tendon at neck level, initial encounter; X58.XXXA Exposure to other specified factors, initial encounter; J45.909 Unspecified asthma, uncomplicated; K21.9 Gastro-esophageal reflux disease without esophagitis; F31.9 Bipolar disorder, unspecified; F20.9 Schizophrenia, unspecified; F90.9 Attention-deficit hyperactivity disorder, unspecified type
CPT/HCPCS: 70450; 72125; 80048; 80185; 84703; 85025; 96361; 96365; 96375; 99285; J7030

== ENCOUNTER 2019-04-04 21:00 | Emergency (ER) | payer MEDICAID, SELFPAY ==
[2019-04-04 21:01] VITALS: BP 118/72; PULSE 94; RESP 18; TEMP 36.8; O2SAT 99; BMI 21.0
--- NOTE | 2019-04-04 21:05 | RAD_ITS ---
STUDY: X-RAY - LEFT HAND REASON FOR EXAM: Female, 23 years old. Cut index finger with knife. TECHNIQUE: 3 view(s) of the hand. COMPARISON: None. FINDINGS: Normal radiocarpal articulation. Normal distal radioulnar joint. Normal visualized carpal bones. Normal carpal articulations Normal carpometacarpal articulation of the thumb. Normal second through fifth carpometacarpal joints. Normal metacarpi. Normal metacarpophalangeal joint of the thumb. Normal interphalangeal joint of the thumb. Normal proximal and distal phalanges of the thumb. Normal metacarpophalangeal joints of the second through fifth fingers. Normal proximal and distal interphalangeal joints of the second through fifth fingers. Normal phalanges of the second through fifth fingers. The soft tissue structures are unremarkable. There is no opaque foreign body. RAD/Hand Min 3 Views IMPRESSION: Normal x-ray examination of the hand. Electronically Signed: Dario Seymour DO at 21:40 EDT Tel [phone], Service support ,
[2019-04-04] MEDS: Ondansetron ODT 4 MG Tablet PO (21:24)
[2019-04-04] MEDS: Diphth,Pertuss(Acell),Tet Vac 0.5 ML Vial IM (21:25)
--- NOTE | 2019-04-04 21:32 | ED.DCSUM_ITS ---
- ER Visit Summary Date of Service: 04/04/19 Chief Complaint: Finger laceration History of Present Illness: The patient is a 23 F presents to the emergency department laceration to her finger. The patient was in her normal state of health. She was trying to cut lettuce. The knife slipped and incised the distal tip of her left index finger. She is unsure of her last tetanus. She states that she was having numbness in her entire hand. She states that she panicked and called the squad. She is not on anticoagulants. Physical Examination: Exam is relatively unremarkable. The patient does have a partial-thickness superficial laceration that goes through the distal tip of the nail that is approximately 3 cm. The nail is intact. There is no active bleeding. Her two-point determination is preserved. Cap refill is less than 2 seconds. Test Results: [] Emergency Department Course and Treatment: The laceration is not go all the way through the nailbed. The wound was cleaned and explored. I do not feel that this requires primary closure. I did obtain an x-ray which shows no evidence of bony disruption. The patient's tetanus was updated. She was counseled on local wound care. Due to the risk of removing the nail to repair the superficial laceration is much higher than the benefit of actually repairing it. The patient is comfortable with this plan. She will be discharged home. Treatment Plan: [] Disposition: Discharge Impression: 1. Superficial laceration left index finger This note was generated with [employer] dictation software. It may contain incorrect words, spelling, and punctuation that were not noted in review of the chart prior to signing ED Disposition - Plan for ED Patient: Instructions: LACERATION, Small/superficial, Not sutured Referrals: Care Physician,No Primary [Primary Care Provider] -
[2019-04-04] MEDS: Acetaminophen 500 MG Tablet 1000 MG PO (21:47)
[2019-04-04 21:48] VITALS: BP 108/71; PULSE 75; RESP 18; O2SAT 99
== END 2019-04-04 21:51 | disposition home or self-care (01) ==
LOC: ED 21:40
PROVIDERS: Emergency Provider Emergency Medicine
DX: S61.311A Laceration without foreign body of left index finger with damage to nail, initial encounter (principal); W26.0XXA Contact with knife, initial encounter; Y93.9 Activity, unspecified; Y92.9 Unspecified place or not applicable; Y99.9 Unspecified external cause status; Z23 Encounter for immunization; Z79.899 Other long term (current) drug therapy
CPT/HCPCS: 73130; 90471; 90715; 99285

== ENCOUNTER 2019-04-11 15:35 | Emergency (ER) | payer MEDICAID, SELFPAY ==
[2019-04-11 15:35] VITALS: BP 143/96; PULSE 103; RESP 28; TEMP 37.7; O2SAT 100; BMI 20.2
--- NOTE | 2019-04-11 15:48 | ED.VISSUMM ---
- ER Visit Summary Date of Service: 04/11/19 Chief Complaint: Bee sting History of Present Illness: The patient is a 23 F who sustained a bee sting to the right foot. It happened 10 minutes ago. She has a history of anaphylaxis to bee stings. She was stung in the right ankle. She had a neighbor administer an EpiPen and was given a shot of Benadryl by EMS. Her current complaints are of sore throat and trouble swallowing. Her throat feels tight. She currently does not have a PCP but is scheduled to see one in April. Physical Examination: Vital signs are reviewed. Age-appropriate female in no acute respiratory distress. HEENT exam reveals no tongue swelling. There is no uvular swelling. She is handling all of her secretions. Her heart is regular rate and rhythm. Her lungs are clear bilaterally. Abdomen is soft and nontender. Extremities have no edema. Skin exam reveals no rashes. There is no urticaria. Her neurologic exam is normal. Test Results: None performed Emergency Department Course and Treatment: Patient was given solu Medrol and Pepcid IV. She feels much better. After period of observation she had no return of symptoms. She was able to tolerate p.o. The patient was given 4 more days of steroids for home. She will follow-up with her PCP. Treatment Plan: [] Disposition: Discharge Impression: Anaphylaxis to bee sting This note was generated with [employer] dictation software. It may contain incorrect words, spelling, and punctuation that were not noted in review of the chart prior to signing ED Disposition - Plan for ED Patient: Referrals: Care Physician,No Primary [Primary Care Provider] -
[2019-04-11] MEDS: MethylPREDNISolone 125 MG/2 ML Vial IV (16:02)
--- NOTE | 2019-04-11 16:57 | ED.DEP ---
ED Disposition - Plan for ED Patient: Disposition: Home or Assisted Living Instructions: ALLERGIC REACTION, Insect (General) Prescriptions: Prednisone [Deltasone] 40 mg PO DAILY #8 tab Prescription Printed Epi Pen (for allergic rxn) 0.3 mg IM X1 #2 syringe Prescription Printed Referrals: Care Physician,No Primary [Primary Care Provider] -
[2019-04-11 17:40] VITALS: BP 94/55; PULSE 90; RESP 16; O2SAT 100
== END 2019-04-11 17:41 | disposition home or self-care (01) ==
PROVIDERS: Emergency Provider Emergency Medicine
DX: T63.441A Toxic effect of venom of bees, accidental (unintentional), initial encounter (principal); R07.0 Pain in throat; R13.10 Dysphagia, unspecified; T78.2XXA Anaphylactic shock, unspecified, initial encounter; Y92.9 Unspecified place or not applicable; R56.9 Unspecified convulsions; F43.10 Post-traumatic stress disorder, unspecified; X58.XXXA Exposure to other specified factors, initial encounter; Y93.9 Activity, unspecified; Y99.9 Unspecified external cause status; Z79.899 Other long term (current) drug therapy
CPT/HCPCS: 96374; 96375; 99285; A4216; J3490

== ENCOUNTER 2019-06-29 13:45 | Emergency (ER) | payer MEDICAID, SELFPAY ==
[2019-06-29 13:46] VITALS: BP 96/66; PULSE 72; RESP 12; TEMP 36.6; O2SAT 97; BMI 19.8
[2019-06-29] MEDS: Rabies Immune Globulin 150 UNITS/ML 1080 UNITS IM (14:27)
[2019-06-29] MEDS: Rabies Vaccine,Human Diploid 2.5 UNITS Vial IM (14:40)
--- NOTE | 2019-06-29 14:42 | ED.VIS.GEN ---
History of Present Illness Informant: Patient Onset: Today Context: Sudden Onset Timing: Continuous Quality: aching Location: right thumb Current Severity: Mild Maximum Severity: Mild Worsened by: movement/palpation Relieved by: nothing Associated Symptoms: denies Narrative: 23-year-old [id number] female presents to the emergency department with a dog bite to her right thumb. She was walking her neighbor's dog when another neighborhood dog bit her in the thumb. She denies any other injuries. No active bleeding. She denies numbness or tingling or weakness. Her tetanus is up-to-date. She is concerned for rabies. The dog was not wearing a collar and did not appear to have an transaction manager and the police told her to be evaluated with concern for rabies. Prior similar symptoms: No Recent Illness/Hospitalization: No <David Heller - Last Filed: 06/29/19 14:46> <Fabrizio De La Vega - Last Filed: 06/29/19 15:03> Chief Complaint: Bite Past Medical History Prior records reviewed: Yes Past Medical History: None Surgical History: no surgical history Smoking Status: Smoker, status unknown <David Heller - Last Filed: 06/29/19 14:46> <Fabrizio De La Vega - Last Filed: 06/29/19 15:03> - Allergies and Home Meds Allergies/Adverse Reactions: Allergies nut - unspecified Allergy (Verified 06/29/19 13:46) Other onion Allergy (Verified 06/29/19 13:46) Anaphylaxis venom-honey bee Allergy (Verified 06/29/19 13:46) Anaphylaxis cigarette smoke Adverse Reaction (Verified 06/29/19 13:46) Unknown raisins Adverse Reaction (Uncoded 06/29/19 13:46) Unknown Primary Care Physician: Mike Stephens MD [Primary Care Provider] - Review of Systems All systems negative except as indicated Skin: Reports: Wounds <David Heller - Last Filed: 06/29/19 14:46> Physical Exam Vital Signs/Narrative: Vital Signs Temp Pulse Resp BP Pulse Ox 06/29/19 13:46 97.9 F 72 12 96/66 97 Inital Vital Signs reviewed: Yes General: Well nourished, Well developed Head: Normocephalic, Atraumatic Eyes: Perrl, EOMI ENT: Moist mucous membranes Neck: Supple, Nontender Cardiovascular: Regular rate, Regular rhythm Respiratory: No distress, CTA bilaterally, Chest nontender Abdomen: Soft, Nontender, Nondistended, Normal bowel sounds, No masses Back: Nontender, Normal Inspection Extremities: Tenderness - Patient has a puncture wound to the right thumb dorsal aspect just distal to the IP joint. There is no active bleeding. This is a superficial wound. Patient is able to flex and extend at the IP joint actively normally. Capillary refill and sensation are both normal. There is no evidence of acute infection. Skin: Normal color, Trauma Neurological: Alert, Oriented x3 <David Heller - Last Filed: 06/29/19 14:46> Vital Signs/Narrative: Vital Signs Temp Pulse Resp BP Pulse Ox 06/29/19 14:55 16 06/29/19 13:46 97.9 F 72 12 96/66 97 <Fabrizio De La Vega - Last Filed: 06/29/19 15:03> Diagnostic/Tx/Re-eval - Medical Decision Making Patient's tetanus is already up-to-date. The patient has no other injuries besides her thumb. No sutures are indicated. As the patient was concern for rabies the dog did not have an transaction manager we did give the patient the rabies immunoglobulin and vaccine. I injected it into her right hand at the base of her thumb with the remaining going into her right thigh it was a total of 7.182 cc, she was given the vaccine in the deltoid and she will come back in 3, 7 and 14 days. For repeat doses. She will be placed on Augmentin for dog bite. We discussed proper wound care and signs of infection to monitor for and advised that if she develops worsening symptoms prior to returning here for her next rabies vaccination to return to the emergency department <David Heller - Last Filed: 06/29/19 14:46> - Medical Decision Making Stray dog bite to right thumb. Small abrasion. No other abnormal findings. Antibiotics, tetanus immunization, outpatient follow-up. <Fabrizio De La Vega - Last Filed: 06/29/19 15:03> ED Disposition <David Heller - Last Filed: 06/29/19 14:46> <Fabrizio De La Vega - Last Filed: 06/29/19 15:03> - Plan for ED Patient: Disposition: Home or Assisted Living Diagnosis: Dog bite of right thumb, Rabies, need for prophylactic vaccination against Instructions: Dog Bite, Vaccine Information: Rabies Prescriptions: Amoxicillin/Potassium Clav [Augmentin 875-125 Tablet] 1 ea PO BID #10 tab Prescription Printed Referrals: Mike Stephens MD [Primary Care Provider] -
[2019-06-29 14:55] VITALS: RESP 16
== END 2019-06-29 14:55 | disposition home or self-care (01) ==
PROVIDERS: Emergency Provider Physician Assistant Medical; Family Provider Family Medicine; PCP Family Medicine
DX: S61.031A Puncture wound without foreign body of right thumb without damage to nail, initial encounter (principal); W54.0XXA Bitten by dog, initial encounter; Y93.K1 Activity, walking an animal; Y92.9 Unspecified place or not applicable; Y99.9 Unspecified external cause status; Z23 Encounter for immunization; F17.200 Nicotine dependence, unspecified, uncomplicated; Z79.899 Other long term (current) drug therapy
CPT/HCPCS: 90375; 90675; 96372; 99282

== ENCOUNTER 2019-09-10 12:45 | Emergency (ER) | payer MEDICAID, SELFPAY ==
[2019-09-10 12:50] VITALS: BP 120/71; PULSE 71; RESP 14; TEMP 36.8; O2SAT 100; BMI 19.0
--- NOTE | 2019-09-10 13:12 | CT_ITS ---
STUDY: CT BRAIN WITHOUT CONTRAST REASON FOR EXAM: Female, 23 years old. RADIATION DOSAGE (If Supplied By Facility): CTDIvol = ( 44.99 ) mGy, DLP = ( 711.75 ) mGycm TECHNIQUE: Transaxial CT imaging of the brain was performed without administration of intravenous contrast material. Individualized dose optimization techniques were used for this CT. COMPARISON: No relevant priors. FINDINGS: Normal soft tissue structures. Normal calvarium. Normal size ventricles and extra-axial spaces for the patient's age. Normal white matter tracts of the cerebral hemispheres. Normal basal ganglia and thalami. Normal brainstem. Normal cerebellum. There is no intracranial hemorrhage. There are no findings of an acute ischemic infarction. Normal visualized paranasal sinuses. CT/Brain/Head without Contrast IMPRESSION: Normal unenhanced CT scan of the brain. Electronically Signed: Caitlyn Bernstein, at 13:38 EST Tel , Service support ,
[2019-09-10 13:23] LABS: Absolute Lymphocyte Count 1.59 X10^3/uL (0.83-4.51); Absolute Neutrophil Count 1.3 X10^3/uL (2.0-7.7); Basophil# 0.04 X10^3/uL; Basophil% 1.2 % (0-1); Eosinophil# 0.15 X10^3/uL; Eosinophils% 4.4 % (0-5); Hematocrit 39.9 % (37-47); Hemoglobin 13.3 g/dL (12.0-15.0); Lymphocyte # 1.59 X10^3/ul (4.0); Lymphocyte % 46.4 % (19-41); Mean Corp Hgb Conc 33.3 g/dL (32-36); Mean Corpuscular Hgb 29.6 pg (27.0-32.0); Mean Corpuscular Volume 88.7 fL (81-99); Mean Platelet Vol. 11.1 fl (6.2-12.0); Monocyte# 0.31 X10^3/uL; NRBC Flagged by Analyzer 0 % (0-5); Neutrophil # 1.33 X10^3/uL (2.7-7.7); Neutrophil % 38.7 % (47-70); Platelet Count 196 K/mm3 (150-450); RBC Distribution Width CV 12.2 % (11.6-14.6); RBC Distribution Width SD 40.1 fl (35.1-43.9); White Blood Count 3.4 K/mm3 (4.4-11.0)
[2019-09-10 13:28] LABS: Internal QC Validated? YES +Cl - CLEAR BKGD; Pregnancy, Serum, hCG Quali. NEGATIVE Negative
[2019-09-10 13:32] LABS: Anion Gap 5 (5-15); BUN 12 mg/dL (7-18); BUN/Creat Ratio 14.7 RATIO (10-20); Calcium,Total 8.8 mg/dL (8.5-10.1); Chloride 110 mmol/L (98-107); Creatinine, Serum 0.81 mg/dL (0.55-1.02); EST Glomerular Filtration Rate 94 mL/min (>60); Est Glom Filt Rate - Afr Amer 113 mL/min (>60); Estimated Creatinine Clearance 95.39 ml/min; Glucose 94 mg/dL (74-106); Potassium 3.6 mmol/L (3.5-5.1); Sodium Level 139 mmol/L (136-145)
[2019-09-10 14:07] VITALS: BP 116/67; PULSE 68; RESP 16; O2SAT 98
[2019-09-10 14:08] VITALS: BP 116/67; PULSE 68; RESP 16; O2SAT 100
[2019-09-10 15:01] LABS: Phenytoin (Dilantin) Level < 0.4 mL (10.0-20.0)
--- NOTE | 2019-09-10 15:39 | ED.VISSUMM ---
- ER Visit Summary Date of Service: 09/10/19 Chief Complaint: Seizure History of Present Illness: The patient is a 23 F who presents with a seizure that occurred today. Patient states she was walking her friend's dog when she had a seizure. Patient does not remember any of the events around the seizure. Patient states she did not bite her tongue. Patient states she was not incontinent of urine or stool. Patient has a history of seizures. Patient states her prescription for Dilantin ran out and her neurologist increased her Lamictal recently. Patient states her neurologist does not want to restart her Dilantin until her Lamictal level is more therapeutic. Patient thinks she hit her head when she fell. Patient has pain over the left side of her head. This is worse with palpation. Patient describes her pain as sharp. Physical Examination: Vital signs are stable. Patient is afebrile. Patient is in no acute distress. Pupils are equal, round, and reactive to light bilaterally. Extraocular muscles are intact. Conjunctiva is clear. Oral mucosa is pink and moist. There are no oral lacerations or abrasions noted. Neck is supple. Trachea is midline. There is no JVD. Heart was regular rate and rhythm. Lungs are clear and equal bilaterally. Abdomen is soft and nontender. Cranial nerves II through XII are intact. There are no focal motor or sensory deficits noted. There is tenderness over the left parietal area. There is no bony crepitance or step-off noted. No hematoma noted. Test Results: CBC and basic metabolic profile within normal limits. Dilantin level was less than 0.4. Lamictal level was ordered and is pending. Due to the questionable head trauma, CT scan of the brain was obtained. There is no acute intracranial process noted. Emergency Department Course and Treatment: Patient was observed here in the emergency department. Seizure precautions were followed. Patient was feeling better on reevaluation. Patient was instructed to drink plenty of fluids. Patient was instructed to follow-up with her primary care physician and neurologist in 5 to 7 days. Patient understood and was agreeable with the plan. All questions were answered. Disposition: Discharge home Impression: 1. Breakthrough seizure This note was generated with [employer] software. It may contain incorrect words, spelling, and punctuation that were not noted in review of the chart prior to signing ED Disposition - Plan for ED Patient: Disposition: Home or Assisted Living Diagnosis: Seizure Instructions: SEIZURE, Recurrent [Adult] Referrals: Mike Stephens MD [Primary Care Provider] - 5-7 Days
== END 2019-09-10 16:14 | disposition home or self-care (01) ==
PROVIDERS: Emergency Provider Emergency Medicine; Family Provider Family Medicine; PCP Family Medicine
DX: G40.909 Epilepsy, unspecified, not intractable, without status epilepticus (principal); F20.9 Schizophrenia, unspecified; F31.9 Bipolar disorder, unspecified; F41.9 Anxiety disorder, unspecified; F43.10 Post-traumatic stress disorder, unspecified; X58.XXXA Exposure to other specified factors, initial encounter; Y93.9 Activity, unspecified; Y92.9 Unspecified place or not applicable; Y99.9 Unspecified external cause status; F17.290 Nicotine dependence, other tobacco product, uncomplicated; Z79.899 Other long term (current) drug therapy
CPT/HCPCS: 70450; 80048; 80185; 82542; 84703; 85025; 99285; A4216

== ENCOUNTER 2020-03-06 21:54 | Emergency (ER) | payer MEDICAID, SELFPAY ==
[2020-03-06 21:54] VITALS: BP 110/77; PULSE 73; RESP 18; TEMP 37.1; O2SAT 100; BMI 21.4
--- NOTE | 2020-03-06 22:05 | ED.VIS.GEN ---
History of Present Illness Chief Complaint: Head Injury Informant: Patient Narrative: Stated she had an accident today. She had a seizure while standing. She has some soreness in the back of her head and neck. She did not remember the incident. She felt some strange sensation in her head beforehand. Her last seizure was couple weeks ago. She gets them frequently. She has not taken her Dilantin or Lamictal in the last 2 weeks. She stated she is just forgotten to do so. Patient does see a neurologist. Denies any other problems. No other injuries. Blood sugar was normal for EMS. Current severity is mild. She feels almost back to normal other than being tired. She has a history of chronic seizures. - Past Medical History (1) Contusion of left middle finger Status: Acute (2) Contusion of left index finger Status: Acute Past Medical History - Allergies and Home Meds Allergies/Adverse Reactions: Allergies nut - unspecified Allergy (Verified 09/10/19 12:53) Other onion Allergy (Verified 09/10/19 12:53) Anaphylaxis venom-honey bee Allergy (Verified 09/10/19 12:53) Anaphylaxis cigarette smoke Adverse Reaction (Verified 09/10/19 12:53) Unknown raisins Adverse Reaction (Uncoded 09/10/19 12:53) Unknown Primary Care Physician: Mike Stephens MD [Primary Care Provider] - Prior records reviewed: Yes Past Medical History: - - See problem list, seizure disorder Surgical History: no surgical history Lives: With Family Smoking Status: Current every day smoker Alcohol: None Drugs: None Review of Systems General: Denies: Chills, Fever, Sweats Eyes: Denies: Visual changes - bilaterally, Diplopia ENT: Denies: Rhinorrhea, Sore throat Cardiovascular: Denies: Chest pain, Palpitations Respiratory: Denies: Dyspnea, Cough, Dyspnea on exertion Gastrointestinal: Denies: Abdominal pain, Nausea, Vomiting, Diarrhea, Melena, Hematochezia Genitourinary: Denies: Dysuria, Hematuria, Frequency Musculoskeletal: Reports: Neck pain. Denies: Extremity Pain Skin: Denies: Rash, Wounds Neurological: Reports: Headache. Denies: Weakness, Numbness Physical Exam Vital Signs/Narrative: Vital Signs Temp Pulse Resp BP Pulse Ox 03/06/20 21:54 98.7 F 73 18 110/77 100 General: Well nourished, Well developed, No Acute Distress Head: Normocephalic, Atraumatic. Negative for: Trauma, Tenderness Eyes: Perrl, EOMI ENT: Moist mucous membranes, No rhinorrhea Neck: Supple, - - Mild tenderness diffusely without swelling deformity or bony step-off. C-collar. Negative for: Nontender Cardiovascular: Regular rate, Regular rhythm, No murmurs Respiratory: No distress, CTA bilaterally, Chest nontender Abdomen: Soft, Nontender, Nondistended, Normal bowel sounds Back: Nontender, Normal Inspection Extremities: Nontender, No edema Skin: Normal color, No rash Neurological: Alert, Oriented x3, Cranial nerves II-XII grossly intact, Normal Strength, Normal Sensation Psychological: Normal affect, Normal Mood Diagnostic/Tx/Re-eval - Medical Decision Making Patient given a dose of Dilantin and Lamictal. She has not been taking her medications as prescribed. X-ray of the neck obtained. X-ray of the neck is negative. I do not feel she needs a CT of her head. There is no over injury to her head. There is no hematoma or even tenderness. At this time the patient had a breakthrough seizure due to noncompliance with her medication. She is instructed continue taking her medication as scheduled. She stated she will follow-up as an outpatient will do so. She will return if she worsens ED Disposition - Plan for ED Patient: Disposition: Home or Assisted Living Diagnosis: Seizure, Noncompliance with medication regimen Instructions: ED Seizure Recurrent Adult Referrals: Mike Stephens MD [Primary Care Provider] - Additional Instructions: Please follow-up with your neurologist and take your medication daily
--- NOTE | 2020-03-06 22:20 | RAD_ITS ---
HISTORY: SEIZURE, HIT HEAD, NECK PAIN ADDITIONAL HISTORY: None provided. TECHNIQUE: Cervical spine 3 views Number of images including paperwork: 4 COMPARISON: None FINDINGS: VERTEBRAE: No acute fracture. VERTEBRAL ALIGNMENT: No traumatic subluxation. DISKS AND JOINTS: No significant degenerative changes. SOFT TISSUES: Unremarkable paraspinous soft tissues. RAD/Cerv Spine 2 or 3 Views IMPRESSION: No acute osseous abnormality. at 2235 Reported and signed by: Gilda Grady MD Electronically Signed: Gilda Grady MD at 22:34 EDT Tel , Service support ,
[2020-03-06] MEDS: lamoTRIgine 100 MG Tablet 50 MG PO (22:46)
[2020-03-06] MEDS: Phenytoin Na 100 MG Capsule PO (22:46)
[2020-03-06 23:30] VITALS: BP 112/85; PULSE 86; RESP 16; O2SAT 100
== END 2020-03-06 23:37 | disposition home or self-care (01) ==
LOC: ED 22:34
PROVIDERS: Emergency Provider Emergency Medicine; PCP Family Medicine
DX: G40.909 Epilepsy, unspecified, not intractable, without status epilepticus (principal); Z91.14 Patient's other noncompliance with medication regimen; S09.90XA Unspecified injury of head, initial encounter; M54.2 Cervicalgia; S60.032A Contusion of left middle finger without damage to nail, initial encounter; S60.022A Contusion of left index finger without damage to nail, initial encounter; W19.XXXA Unspecified fall, initial encounter; Y93.9 Activity, unspecified; Y92.9 Unspecified place or not applicable; Y99.9 Unspecified external cause status; F17.200 Nicotine dependence, unspecified, uncomplicated; Z79.899 Other long term (current) drug therapy
CPT/HCPCS: 72040; 99285; J7030

== ENCOUNTER 2020-07-12 19:38 | Emergency (ER) | payer MEDICAID, SELFPAY ==
[2020-07-12 19:39] VITALS: BP 123/83; PULSE 86; RESP 22; TEMP 36.8; O2SAT 100; BMI 19.8
--- NOTE | 2020-07-12 19:42 | ED.RN ---
patient stopped seizing.
[2020-07-12] MEDS: LORazepam 2 MG/ML Syringe 1 MG IV (19:43)
--- NOTE | 2020-07-12 19:47 | CT_ITS ---
STUDY: CT BRAIN WITHOUT CONTRAST REASON FOR EXAM: Female, 24 years old. Seizure RADIATION DOSAGE (If Supplied By Facility): CTDIvol = ( 44.99 ) mGy, DLP = ( 745.49 ) mGycm TECHNIQUE: Transaxial CT imaging of the brain was performed without administration of intravenous contrast material. Individualized dose optimization techniques were used for this CT. COMPARISON: September 10 2019 FINDINGS: Brain parenchyma is without focal lesions, mass effect, acute intracranial hemorrhage, extra parenchymal fluid collections, hydrocephalus or herniation. The skull is intact. CT/Brain/Head without Contrast IMPRESSION: 1. Normal CT brain. Electronically Signed: Isabelle Parekh, at 20:38 EDT Tel , Service support ,
[2020-07-12 20:09] LABS: Absolute Lymphocyte Count 1.75 X10^3/uL (0.83-4.51); Absolute Neutrophil Count 5.7 X10^3/uL (2.0-7.7); Basophil# 0.05 X10^3/uL; Basophil% 0.6 % (0-1); Eosinophil# 0.13 X10^3/uL; Eosinophils% 1.6 % (0-5); Hematocrit 35.5 % (37-47); Hemoglobin 11.5 g/dL (12.0-15.0); Lymphocyte # 1.75 X10^3/ul (4.0); Lymphocyte % 21.5 % (19-41); Mean Corp Hgb Conc 32.4 g/dL (32-36); Mean Corpuscular Hgb 28.3 pg (27.0-32.0); Mean Corpuscular Volume 87.4 fL (81-99); Monocyte% 6.1 % (0-10); NRBC Flagged by Analyzer 0 % (0-5); Neutrophil # 5.69 X10^3/uL (2.7-7.7); Neutrophil % 69.8 % (47-70); Platelet Count 215 K/mm3 (150-450); RBC Distribution Width CV 12.2 % (11.6-14.6); RBC Distribution Width SD 39.2 fl (35.1-43.9); Red Blood Count 4.06 M/mm3 (4.2-5.4); White Blood Count 8.2 K/mm3 (4.4-11.0)
[2020-07-12] MEDS: 0.9% Normal Saline 1,000 ML 150 ML IV (20:11)
--- NOTE | 2020-07-12 20:24 | ED.RN ---
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 Per family patient has unresponsive and still seizing when squad released her. Spoke with medic in charge who stated patient was alert and oriented and vitals within all normal limits. Patient was able to continue walking down the street with her boyfriend. no need no further medical treatment. Information relayed to Dr. Pisano
--- NOTE | 2020-07-12 20:30 | RAD_ITS ---
STUDY: X-RAY - CERVICAL SPINE REASON FOR EXAM: Female, 24 years old. seizure, neck pain TECHNIQUE: 3 view(s) of the cervical spine were obtained. COMPARISON: Mar 06 2020 FINDINGS: Normal anterior atlantoaxial articulation. Normal odontoid process. Normal cervical lordosis. Normal vertebral bodies and endplates. Normal disc space heights. Normal visualized intervertebral neuroforamina. The soft tissue structures are unremarkable. RAD/Cerv Spine 2 or 3 Views IMPRESSION: Normal x-ray examination of the visualized cervical spine. Electronically Signed: Isabelle Parekh, at 20:42 EDT Tel , Service support ,
[2020-07-12 20:35] LABS: Anion Gap 5 (5-15); BUN 10 mg/dL (7-18); BUN/Creat Ratio 10.4 RATIO (10-20); Calcium,Total 8.8 mg/dL (8.5-10.1); Chloride 108 mmol/L (98-107); Creatinine, Serum 0.96 mg/dL (0.55-1.02); EST Glomerular Filtration Rate 77 mL/min (>60); Est Glom Filt Rate - Afr Amer 93 mL/min (>60); Estimated Creatinine Clearance 80.68 ml/min; Glucose 89 mg/dL (74-106); Internal QC Validated? YES +Cl - CLEAR BKGD; Potassium 3.6 mmol/L (3.5-5.1); Pregnancy, Serum, hCG Quali. NEGATIVE Negative; Sodium Level 139 mmol/L (136-145)
[2020-07-12 20:47] VITALS: BP 103/65; PULSE 83; RESP 18; O2SAT 100
[2020-07-12 20:50] LABS: Phenytoin (Dilantin) Level 0.5 mL (10.0-20.0)
--- NOTE | 2020-07-12 21:08 | ED.VISSUMM ---
- ER Visit Summary Date of Service: 07/12/20 Chief Complaint: [Seizure] History of Present Illness: The patient is a 24 F [presents the emergency department with seizure that started about half an hour ago. The boyfriend initially gives all the history. Patient apparently was at a friend's house and when she fell over and started seizing. Apparently the seizure lasted about 20 minutes and EMS was called. From what the boyfriend says EMS arrived and evaluated the patient and while she was still unconscious they left. Boyfriend states that he put his girlfriend in his truck and brought her into the ER for evaluation. On arrival to ER patient with seizure activity. While nurses obtained IV patient stopped seizing as I was evaluating her and she immediately returned to a normal level of consciousness and was answering questions appropriately including all her medical history including her medications that she is on. Patient apparently has not been taking her seizure medicines because she thinks she might be and she is trying to get . She denies recent illness. She denies any recent head trauma although she does complain of a headache and neck pain. Patient states that her seizures oftentimes are related to stress but also that she gets them sometimes when she sees blinking lights.] Physical Examination: [HEENT-PERRLA, EOMI. Cranial nerves II through XII grossly intact. TMs clear. Mucous membranes moist. No adenopathy. No external evidence of trauma to her head. No C-spine tenderness on palpation. No bite wounds noted to the tongue or mouth. Cardiovascular-regular rate and rhythm without murmur or ectopy Lungs-clear to auscultation, chest wall stable without crepitus or subcu emphysema Abdomen-normoactive bowel sounds, soft, nontender, no rebound or rigidity, no peritoneal signs. Neuro txik-fwxonf-idtt and heel abdi testing within normal limits, negative Romberg, negative pronator, fundi benign. Extremities-intact ?4, normal range of motion, normal pulses, atraumatic] Test Results: [CT scan of the brain without contrast was unremarkable. X-rays of the C-spine were negative. CBC with differential showed a white of 8.2, hemoglobin 11.5, hematocrit 35, platelets 215. Chemistries unremarkable. hCG was negative. Dilantin was 0.5.] Emergency Department Course and Treatment: [Discussed results with patient and she believes she still despite a negative test here. Patient states that she took a PT test at home and it was positive. Patient states that she does not want to take her seizure medication because she is try to get . She states that she needs to get refills on her medications.] Patient did receive 1 mg of Ativan on arrival. There is no further seizure activity. Treatment Plan: [Advised to follow-up with her primary care physician and neurologist within next 3 to 5 days.] Disposition: [Discharged home in stable condition] Impression: [Recurrent seizure in an adult Noncompliant with seizure medications] This note was generated with [employer] dictation software. It may contain incorrect words, spelling, and punctuation that were not noted in review of the chart prior to signing ED Disposition - Plan for ED Patient: Referrals: Mike Stephens MD [Primary Care Provider] -
--- NOTE | 2020-07-12 21:13 | ED.DEP ---
ED Disposition - Plan for ED Patient: Instructions: ED Seizure Recurrent Adult Referrals: Mike Stephens MD [Primary Care Provider] - 3-5 Days Additional Instructions: see your neurologist
[2020-07-12 21:21] VITALS: BP 100/67; PULSE 72; RESP 14; O2SAT 100
[2020-07-13 15:41] LABS: Bedside Glucose 93 mg/dL (70-110)
== END 2020-07-12 21:24 | disposition home or self-care (01) ==
LOC: ED 20:03
PROVIDERS: Emergency Provider Emergency Medicine; PCP Family Medicine
DX: R56.9 Unspecified convulsions (principal); Z91.14 Patient's other noncompliance with medication regimen; M54.2 Cervicalgia; Z79.899 Other long term (current) drug therapy
CPT/HCPCS: 70450; 72040; 80048; 80185; 82962; 84703; 85025; 96361; 96374; 99283; J7030; A4216

== ENCOUNTER 2020-07-26 19:23 | Emergency (ER) | payer MEDICAID, SELFPAY ==
[2020-07-26 19:25] VITALS: BP 111/74; PULSE 82; RESP 16; TEMP 36.7; O2SAT 99; BMI 21.9
--- NOTE | 2020-07-26 19:56 | ED.VIS.GEN ---
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 According to paramedics she had 7 or 8, the patient states she does not think so, she feels like she just had 2 or 3. She has a history of a seizure disorder. She takes phenytoin and Lamictal. She ran out of the phenytoin and did not have it for about a month. She restarted it about a week ago or less, she is new to this area, and had a temporary prescription. She has someone to follow-up with. She states that she did not want to come to the hospital and told paramedics that they brought her anyway. There is no one else with her another details are unknown. She takes phenytoin 100 mg 3 times daily. She states right before she had this last seizure, she took 4 caplets, 400 mg. She just took that about 20 minutes prior to arrival here. She states she feels fine now. Paramedics brought her because she was postictal and not able to refuse transport at the time. She denies using IV or of any other illicit drugs, just the prescriptions that she is prescribed, which in addition to the others is an antidepressant. She denies any suicidal ideation. - Past Medical History (1) Seizure disorder Status: Chronic Past Medical History - Allergies and Home Meds Allergies/Adverse Reactions: Allergies nut - unspecified Allergy (Verified 07/26/20 19:28) Other onion Allergy (Verified 07/26/20 19:28) Anaphylaxis venom-honey bee Allergy (Verified 07/26/20 19:28) Anaphylaxis cigarette smoke Adverse Reaction (Verified 07/26/20 19:28) Unknown raisins Adverse Reaction (Uncoded 07/26/20 19:28) Unknown Primary Care Physician: Mike Stephens MD [Primary Care Provider] - 3-5 Days if not improving Surgical History: no surgical history Smoking Status: Current every day smoker Review of Systems General: Denies: Chills, Fever, Sweats Eyes: Denies: Visual changes - bilaterally, Diplopia ENT: Denies: Rhinorrhea, Sore throat Cardiovascular: Denies: Chest pain, Palpitations Respiratory: Denies: Dyspnea, Cough, Dyspnea on exertion Gastrointestinal: Denies: Abdominal pain, Nausea, Vomiting, Diarrhea, Melena, Hematochezia Genitourinary: Denies: Dysuria, Hematuria, Frequency Musculoskeletal: Denies: Back pain, Swelling, Extremity Pain Skin: Denies: Rash, Wounds Neurological: Denies: Headache, Weakness, Numbness Physical Exam Vital Signs/Narrative: Vital Signs Temp Pulse Resp BP Pulse Ox 07/26/20 19:25 98.1 F 82 16 111/74 99 Inital Vital Signs reviewed: Yes General: Well nourished, Well developed, No Acute Distress Head: Normocephalic, Atraumatic Eyes: Perrl, EOMI Respiratory: No distress - Speaking in full sentences Extremities: Nontender, No edema Skin: Normal color, No rash, No Trauma Neurological: Alert, Oriented x3, Cranial nerves II-XII grossly intact, Normal Strength, Normal Sensation, Normal Gait Psychological: Normal affect, Normal Mood Diagnostic/Tx/Re-eval - Medical Decision Making I discussed with patient options, such as drawing a phenytoin level and if low, giving her an IV load to bring her up to therapeutic levels. She understood the logic of this, but refuses/declines, and would like to be discharged. She did not hit her head and has no sign of head trauma. She has someone to follow-up with. Therefore at her request she is discharged and reminded not to drive. ED Disposition - Plan for ED Patient: Disposition: Home or Assisted Living Diagnosis: Breakthrough seizure, Seizure disorder Instructions: ED Seizure Recurrent Adult Referrals: Mike Stephens MD [Primary Care Provider] - 3-5 Days if not improving
== END 2020-07-26 20:01 | disposition home or self-care (01) ==
LOC: ED 19:57
PROVIDERS: Emergency Provider Emergency Medicine; PCP Family Medicine
DX: G40.909 Epilepsy, unspecified, not intractable, without status epilepticus (principal); F17.200 Nicotine dependence, unspecified, uncomplicated; Z79.899 Other long term (current) drug therapy
CPT/HCPCS: 99283

== ENCOUNTER 2021-02-28 00:12 | Emergency (ER) | payer MEDICAID, SELFPAY ==
[2021-02-28 00:15] VITALS: BP 111/72; PULSE 80; RESP 22; TEMP 37.3; O2SAT 97; BMI 19.1
--- NOTE | 2021-02-28 00:40 | EX.ED.DYSGE1 ---
HPI History of Present Illness Chief Complaint: Abd Pain Narrative Narrative: Patient presents with left lower quadrant sharp abdominal pain. Started 5 minutes ago. It is gone at this time she feels back to normal. She is unsure what that happened. She is 6 weeks by dates and ultrasound last week. She stated she had intrauterine seen on ultrasound with normal heart tones. This is her first . Denies vaginal bleeding. Denies any urinary symptoms. She felt fine before this came on. No home treatment PFSH PFSH Medical History Anxiety Asthma PTSD (post-traumatic stress disorder) Schizophrenia Seizures Home Medications epinephrine 0.3 mg IM X1 PRN 06/30/18 [History Last Taken Unknown] albuterol sulfate 1 - 2 puff INHALATION Q4H PRN PRN 08/12/18 [History Last Taken 08/12/18] phenytoin sodium extended 100 mg capsule 50 mg PO TID 30 Days #60 cap 08/22/18 [History Last Taken 07/26/20] [id number] [] 1 tab PO DAILY 02/28/21 [History Last Taken Unknown] Allergy/AdvReac Type Severity Reaction Status Date / Time nut - unspecified Allergy Other Verified 02/28/21 00:14 onion Allergy Anaphylaxis Verified 02/28/21 00:14 venom-honey bee Allergy Anaphylaxis Verified 02/28/21 00:14 cigarette smoke AdvReac Unknown Verified 02/28/21 00:14 raisins AdvReac Unknown Uncoded 02/28/21 00:14 Family History Mother Seizures Mental health problem Brother Seizures Surgical History History of tonsillectomy Social History Smoking Status: Current every day smoker alcohol intake: never ROS ROS ED ROS Narrative ROS General: Denies fever, chills, sweats Eyes: Denies visual changes, blurred vision, double vision ENT: Denies ear pain, rhinorrhea, sore throat Cardiovascular: Denies chest pain, palpitations, heart racing Respiratory: Denies dyspnea, cough, sputum, dyspnea on exertion, orthopnea,PND GI: See HPI : Denies dysuria, hematuria, frequency Musculoskeletal: Denies myalgias, arthralgias, neck pain, back pain Skin: Denies rash, abscess, abrasions Neuro: Denies headache, weakness, paresthesia Psych: Denies depression, anxiety Endo: Denies polyuria, polydipsia, polyphagia Heme: Denies easy bruising, easy bleeding, lymphadenopathy Allergy: Denies hives, swelling EXAM Physical Exam Narrative Exam Narrative: Vital signs reviewed General: Well-nourished well-developed Head: Normocephalic atraumatic Eyes: Pupils equal round and reactive to light extraocular movements intact ENT: TMs clear no hemotympanum no trauma Neck: Nontender full range of motion Cardiovascular: Regular rate rhythm no murmurs normal S1-S2 Respiratory: No distress clear to auscultation bilaterally chest nontender Abdomen: Soft nontender nondistended normal bowel sounds no masses Back: Nontender no CVA tenderness Extremities: Nontender active range of motion ?4 extremities no trauma Skin: Normal color no trauma Neuro alert oriented cranial nerves II through XII intact normal strength sensation reflexes Const Vital Signs: 02/28/21 00:15 Temperature 99.1 F Temperature Source Oral Pulse Rate 80 Respiratory Rate 22 H Blood Pressure 111/72 Blood Pressure Mean 85 Pulse Ox 97 Oxygen Delivery Method Room Air MDM MDM MDM Narrative Medical decision making narrative: Patient symptoms have resolved. She has a normal intrauterine on previous ultrasound therefore I have a low suspicion for ectopic. She has had no bleeding. This could be a gas bubble in her abdomen that resolved. Nonetheless I do not feel she needs a work-up at this time as she is back to normal. This only lasted for a very short period of time. We will follow-up as an outpatient. Discharge Plan Triage Chief Complaint: Abd Pain ED Provider: Clifton Umaña Dx/Rx/DC Orders Prescriptions: No Action phenytoin sodium extended 100 mg capsule 50 mg PO TID 30 Days Qty: 60 RF: 0 epinephrine 0.3 MG syringe 0.3 mg IM X1 PRN (Reason: Allergies) RF: 0 albuterol sulfate 1 PUFF inhaler 1 - 2 puff Inhalation Q4H PRN PRN (Reason: Asthma) RF: 0 1 mg Tablet 1 tab PO DAILY RF: 0 Primary Care Provider: Mike Stephens
== END 2021-02-28 00:54 | disposition home or self-care (01) ==
LOC: ED 00:49
PROVIDERS: Emergency Provider Emergency Medicine; PCP Family Medicine
DX: O26.891 Other specified pregnancy related conditions, first trimester (principal); R10.32 Left lower quadrant pain; O99.341 Other mental disorders complicating pregnancy, first trimester; F43.10 Post-traumatic stress disorder, unspecified; F20.9 Schizophrenia, unspecified; O99.511 Diseases of the respiratory system complicating pregnancy, first trimester; J45.909 Unspecified asthma, uncomplicated; R56.9 Unspecified convulsions; O99.331 Smoking (tobacco) complicating pregnancy, first trimester; F17.200 Nicotine dependence, unspecified, uncomplicated; Z79.899 Other long term (current) drug therapy; Z3A.01 Less than 8 weeks gestation of pregnancy
CPT/HCPCS: 99283

== ENCOUNTER 2021-03-25 21:02 | Emergency (ER) | payer MEDICAID, SELFPAY ==
[2021-03-25 21:03] VITALS: BP 99/68; PULSE 95; RESP 18; TEMP 37.3; O2SAT 97
--- NOTE | 2021-03-25 21:13 | EDS_ITS ---
HPI History of Present Illness Chief Complaint: Seizure Narrative Narrative: Patient reports she is 10 weeks normal IUP ultrasound work- up by gynecology yesterday in the clinic, she indicates she has seizure disorder since age of 16 she is on Dilantin and Lamictal those medications were stopped by her neurologist Dr. Garcia in [place] due to the she was told she would not need to have any medications for seizures while she was she indicates she had her typical seizure today. She has no other complaint she has no head neck chest or abdominal pain no vaginal pain or vaginal discharge, she basically indicates that she just wanted to come in to be checked out . She assures me she feels fine she indicates she was having breakthrough seizures on the Dilantin and Lamictal [facility] Medical History Anxiety Asthma PTSD (post-traumatic stress disorder) Schizophrenia Seizures Home Medications epinephrine 0.3 mg IM X1 PRN 06/30/18 [History Last Taken Unknown] albuterol sulfate 1 - 2 puff INHALATION Q4H PRN PRN 08/12/18 [History Last Taken 08/12/18] phenytoin sodium extended 100 mg capsule 50 mg PO TID 30 Days #60 cap 08/22/18 [History Last Taken 07/26/20] [id number] [] 1 tab PO DAILY 02/28/21 [History Last Taken Unknown] Allergy/AdvReac Type Severity Reaction Status Date / Time nut - unspecified Allergy Other Verified 03/25/21 21:06 onion Allergy Anaphylaxis Verified 03/25/21 21:06 Penicillins Allergy Hives Verified 03/25/21 21:06 venom-honey bee Allergy Anaphylaxis Verified 03/25/21 21:06 cigarette smoke AdvReac Unknown Verified 03/25/21 21:06 raisins AdvReac Unknown Uncoded 02/28/21 00:14 Family History Mother Seizures Mental health problem Brother Seizures Surgical History History of tonsillectomy Social History Smoking Status: Former smoker alcohol intake: never ROS ROS ED Constitutional Constitutional ED: Reports subjective, sweats and other; Denies chills, fever(s) or weight loss Eyes Eyes: Denies blurry vision or change in vision ENT ENT ED: Denies ear pain Cardiovascular Cardiovascular: Denies chest pain or palpitations Respiratory/Chest Respiratory/Chest: Denies dyspnea Gastrointestinal Gastrointestinal: Denies abdominal pain, nausea or vomiting Genitourinary Genitourinary ED: Denies dysuria or hematuria Musculoskeletal Musculoskeletal: Denies arthralgias or myalgias Integumentary Reports rash; Denies abscess Neurologic Neurologic: Denies weakness Psychiatric Psychiatric: Denies anxiety or depression Endocrine Endocrinology: Denies polydipsia or polyuria Allergic/Immunologic Allergic/Immunologic ED: Denies urticaria EXAM Physical Exam Const Vital Signs: 03/25/21 21:03 Temperature 99.1 F Temperature Source Temporal Pulse Rate 95 Respiratory Rate 18 Blood Pressure 99/68 Blood Pressure Mean 78 Pulse Ox 97 Oxygen Delivery Method Room Air Positive well developed General Appearance ED: well developed HEENT Reports normocephalic Negative for trauma Eyes EOMs intact bilaterally Neck supple Chest Wall inspection of chest normal Resp normal respiratory effort Cardio regular rate GI non-tender and non-distended Back/Spine Back/Spine Narrative: unremarkable Extremity normal to inspection Neuro oriented x3 and CN's II-XII intact bilaterally Sensorium / Orientation: alert Psych mental status grossly normal Skin no rashes or lesions noted MDM MDM MDM Narrative Medical decision making narrative: The patient is in no distress her vital signs unremarkable she has no history of eclampsia the seizures predate her I discussed having us call her neurologist Dr. Garcia she denied permission asking me not to do that stating she would prefer to contact them herself tomorrow at this time she went to go home she understood the nature of seizures could affect and herself causing life-threatening complications to her and the child and she will follow-up with outpatient providers Home stable Final impression reportedly 10-week with IUP documented yesterday on ultrasound, history of longstanding seizure disorder currently off meds related to Discharge Plan Triage Chief Complaint: Seizure ED Provider: Nicolette Andrews Dx/Rx/DC Orders Clinical Impression: Seizure disorder during Prescriptions: No Action phenytoin sodium extended 100 mg capsule 50 mg PO TID 30 Days Qty: 60 RF: 0 epinephrine 0.3 MG syringe 0.3 mg IM X1 PRN (Reason: Allergies) RF: 0 albuterol sulfate 1 PUFF inhaler 1 - 2 puff Inhalation Q4H PRN PRN (Reason: Asthma) RF: 0 1 mg Tablet 1 tab PO DAILY RF: 0 Primary Care Provider: Mike Stephens Referrals: Mike Stephens MD [Primary Care Provider] - Activity Restrictions/Additional Instructions: Follow-up with your education coordinator and neurologist related to your seizure di sorder and other management options tomorrow return for change in symptoms
[2021-03-25 21:27] VITALS: BP 111/67; PULSE 93; RESP 18; O2SAT 99
== END 2021-03-25 21:28 | disposition home or self-care (01) ==
LOC: ED 21:17
PROVIDERS: Emergency Provider Emergency Medicine; PCP Family Medicine
DX: O99.351 Diseases of the nervous system complicating pregnancy, first trimester (principal); G40.909 Epilepsy, unspecified, not intractable, without status epilepticus; O99.511 Diseases of the respiratory system complicating pregnancy, first trimester; J45.909 Unspecified asthma, uncomplicated; Z79.899 Other long term (current) drug therapy; Z87.891 Personal history of nicotine dependence; Z3A.10 10 weeks gestation of pregnancy
CPT/HCPCS: 99284

== ENCOUNTER 2021-04-01 21:15 | Emergency (ER) | payer MEDICAID, SELFPAY ==
[2021-04-01 21:16] VITALS: BP 107/67; PULSE 94; RESP 18; TEMP 37.1; O2SAT 99; BMI 19.4
--- NOTE | 2021-04-01 21:18 | EDS_ITS ---
HPI History of Present Illness Chief Complaint: Seizure Informant: patient and friend Onset/Context/Timing Onset: Today Context: Sudden Onset Timing: Intermittent Current Severity: Mild Maximum Severity: Moderate Narrative Narrative: 25-year-old female G1, P0 Ab0 approximately 11 weeks . Patient has a known history of seizure disorder. Due to her they took her off her Dilantin and her Lamictal. This is her second seizure with this . She denies other complaints. This was witnessed by a friend is with her. Patient is coming out of the postictal phase and is able to give me history also. She denies any recent illness. Prior similar symptoms: Yes Recent Illness/Hospitalization: No PFSH PFSH Medical History Anxiety Asthma PTSD (post-traumatic stress disorder) Schizophrenia Seizures Home Medications epinephrine 0.3 mg IM X1 PRN 06/30/18 [History Last Taken Unknown] albuterol sulfate 1 - 2 puff INHALATION Q4H PRN PRN 08/12/18 [History Last Taken 08/12/18] phenytoin sodium extended 100 mg capsule 50 mg PO TID 30 Days #60 cap 08/22/18 [History Last Taken 07/26/20] [id number] [] 1 tab PO DAILY 02/28/21 [History Last Taken Unknown] Allergy/AdvReac Type Severity Reaction Status Date / Time nut - unspecified Allergy Other Verified 04/01/21 21:21 onion Allergy Anaphylaxis Verified 04/01/21 21:21 Penicillins Allergy Hives Verified 04/01/21 21:21 venom-honey bee Allergy Anaphylaxis Verified 04/01/21 21:21 cigarette smoke AdvReac Unknown Verified 04/01/21 21:21 raisins AdvReac Unknown Uncoded 04/01/21 21:21 Family History Mother Seizures Mental health problem Brother Seizures Surgical History History of tonsillectomy Social History Smoking Status: Former smoker alcohol intake: never ROS ROS ED ROS Narrative Patient denies recent illness. Review of Systems ROS Unobtainable: Denies due to encephalopathy Constitutional Constitutional ED: Denies chills or fever(s) Eyes Eyes: Denies change in vision ENT ENT ED: Denies ear pain or sore throat Cardiovascular Cardiovascular: Denies chest pain Respiratory/Chest Respiratory/Chest: Denies cough or dyspnea Gastrointestinal Gastrointestinal: Denies abdominal pain or diarrhea Genitourinary Genitourinary ED: Denies dysuria or hematuria Musculoskeletal Musculoskeletal: Denies myalgias Integumentary Denies rash Neurologic Neurologic: Denies headache(s) Psychiatric Psychiatric: Denies depression Endocrine Endocrinology: Denies polyuria Allergic/Immunologic Allergic/Immunologic ED: Denies urticaria EXAM Physical Exam Narrative Exam Narrative: Young female initially postictal but coming out of it. Vital signs are stable and afebrile. She does look septic or toxic. There is no signs of facial trauma. Lungs are clear. Heart regular rhythm. Abdomen soft gravid uterus nontender. No peritoneal signs. Moving all 4 extremities. No deformity. Back nontender. Neurologically she initially was post ictal but now she is starting to respond and coming around. She is moving all 4 extremities. She is answering questions. Const Vital Signs: 04/01/21 21:16 Temperature 98.7 F Temperature Source Oral Pulse Rate 94 Respiratory Rate 18 Blood Pressure 107/67 Blood Pressure Mean 80 Pulse Ox 99 Oxygen Delivery Method Room Air Positive well nourished and well developed General Appearance ED: well developed HEENT Reports moist mucous membranes Negative for trauma or tenderness Eyes PERRL and EOMs intact bilaterally Neck no lymphadenopathy, supple and no JVD General: Negative for tenderness Chest Wall inspection of chest normal and palpation of chest normal Resp normal respiratory effort and clear to auscultation bilaterally Cardio regular rate, regular rhythm and no murmurs GI normal to inspection, nondistended, normoactive bowel sounds, non-tender and non-distended GI Narrative: Gravid nontender uterus. Palpation: soft Back/Spine no CVA tenderness Extremity normal to inspection Neuro Neuro Narrative: Coming out of her postictal phase. Sensorium / Orientation: alert Psych mental status grossly normal Skin no rashes or lesions noted and no wounds MDM MDM MDM Narrative Medical decision making narrative: Ab0 female 11 weeks with a history of seizure disorder, PTSD female also with a history of schizophrenia. Reportedly had a seizure today. Is off her seizure medications due to her . She denies other complaints. Repeat exam patient is doing well. During 1 of these seizure episodes the nurses took her hand above her head and dropped towards her face and she stopped it. This appears like patient has secondary gain and these are not real seizures at this time. Repeat exam she is doing well at 10:06 PM and will be discharged to home. Lab Data Attestation: I reviewed the patient's lab results. Lab results narrative: Labs unremarkable white count of 11. Hemoglobin 10.9. Chemistries unremarkable gap of 8. Creatinine normal. Glucose 79. Nursing reported heart tones of 169. Labs: Laboratory Results - last 24 hr 04/01/21 04/01/21 04/01/21 21:17 21:17 21:29 WBC 11.2 H RBC 3.91 L Hgb 10.9 L Hct 33.4 L MCV 85.4 MCH 27.9 MCHC 32.6 RDW Std Deviation 45.8 H RDW Coeff of Adelfo 14.8 H Plt Count 187 MPV 10.3 Immature Gran % (Auto) 0.500 Neut % (Auto) 72.9 H Lymph % (Auto) 18.8 L [place] % (Auto) 6.4 Eos % (Auto) 1.0 Baso % (Auto) 0.4 Absolute Neuts (auto) 8.1 H Absolute Lymphs (auto) 2.10 Nucleated RBC % 0 Sodium 137 Potassium 3.4 L Chloride 104 Carbon Dioxide 25.0 Anion Gap 8 BUN 8 Creatinine 0.72 Estim Creat Clear Calc 108.01 Est GFR (MDRD) Af Amer 128 Est GFR (MDRD) Non-Af 106 BUN/Creatinine Ratio 11.1 Glucose 79 Calcium 9.1 POC Glucose 95 Discharge Plan Triage Chief Complaint: Seizure ED Provider: Guillermo Cortez Dx/Rx/DC Orders Clinical Impression: Seizure disorder during , Pseudoseizure Instructions: ED Seizure, Recurrent (Adult) Prescriptions: No Action phenytoin sodium extended 100 mg capsule 50 mg PO TID 30 Days Qty: 60 RF: 0 epinephrine 0.3 MG syringe 0.3 mg IM X1 PRN (Reason: Allergies) RF: 0 albuterol sulfate 1 PUFF inhaler 1 - 2 puff Inhalation Q4H PRN PRN (Reason: Asthma) RF: 0 1 mg Tablet 1 tab PO DAILY RF: 0 Primary Care Provider: Mike Stephens Referrals: Mike Stephens MD [Primary Care Provider] - As soon as possible Activity Restrictions/Additional Instructions: Follow-up with your LIBRARY SCIENCE PROFESSOR and/or your primary care physician. Disposition Disposition: Home, self care
[2021-04-01 21:23] LABS: Absolute Neutrophil Count 8.1 X10^3/uL (2.0-7.7); Basophil# 0.04 X10^3/uL; Basophil% 0.4 % (0-1); Eosinophil# 0.11 X10^3/uL; Hematocrit 33.4 % (37-47); Hemoglobin 10.9 g/dL (12.0-15.0); Lymphocyte % 18.8 % (19-41); Mean Corp Hgb Conc 32.6 g/dL (32-36); Mean Corpuscular Hgb 27.9 pg (27.0-32.0); Mean Corpuscular Volume 85.4 fL (81-99); Mean Platelet Vol. 10.3 fl (6.2-12.0); Monocyte# 0.72 X10^3/uL; Monocyte% 6.4 % (0-10); NRBC Flagged by Analyzer 0 % (0-5); Neutrophil # 8.14 X10^3/uL (2.7-7.7); Neutrophil % 72.9 % (47-70); Platelet Count 187 K/mm3 (150-450); RBC Distribution Width CV 14.8 % (11.6-14.6); RBC Distribution Width SD 45.8 fl (35.1-43.9); Red Blood Count 3.91 M/mm3 (4.2-5.4); White Blood Count 11.2 K/mm3 (4.4-11.0)
[2021-04-01 21:36] LABS: Anion Gap 8 (5-15); BUN 8 mg/dL (7-18); BUN/Creat Ratio 11.1 RATIO (10-20); Calcium,Total 9.1 mg/dL (8.5-10.1); Chloride 104 mmol/L (98-107); Creatinine, Serum 0.72 mg/dL (0.55-1.02); EST Glomerular Filtration Rate 106 mL/min (>60); Est Glom Filt Rate - Afr Amer 128 mL/min (>60); Estimated Creatinine Clearance 108.01 ml/min; Glucose 79 mg/dL (74-106); Potassium 3.4 mmol/L (3.5-5.1); Sodium Level 137 mmol/L (136-145)
[2021-04-01 21:41] LABS: Bedside Glucose 95 mg/dL (70-110)
[2021-04-01 22:18] VITALS: BP 112/74; PULSE 81; RESP 16; O2SAT 98
== END 2021-04-01 22:18 | disposition home or self-care (01) ==
PROVIDERS: Emergency Provider Emergency Medicine; PCP Family Medicine
DX: O99.351 Diseases of the nervous system complicating pregnancy, first trimester (principal); G40.909 Epilepsy, unspecified, not intractable, without status epilepticus; O99.511 Diseases of the respiratory system complicating pregnancy, first trimester; J45.909 Unspecified asthma, uncomplicated; O99.341 Other mental disorders complicating pregnancy, first trimester; F43.10 Post-traumatic stress disorder, unspecified; F20.9 Schizophrenia, unspecified; Z79.899 Other long term (current) drug therapy; Z87.891 Personal history of nicotine dependence; Z3A.11 11 weeks gestation of pregnancy
CPT/HCPCS: 80048; 82962; 85025; 99283; A4216

== ENCOUNTER 2021-04-14 16:16 | Emergency (ER) | payer MEDICAID, SELFPAY ==
[2021-04-14 16:18] VITALS: BP 116/89; PULSE 87; RESP 20; TEMP 36.6; O2SAT 98; BMI 19.8
--- NOTE | 2021-04-14 16:32 | EDS_ITS ---
HPI History of Present Illness Chief Complaint: Seizure Narrative Narrative: Patient presents with possible seizure. 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 However her neurologist took her off seizure medications since she is . She is not on any antiepileptics. She is denying fever chills cough congestion she is no longer postictal. She has no chest pain or shortness of breath she is eating and sleeping normally. [facility] Medical History Anxiety Asthma PTSD (post-traumatic stress disorder) Schizophrenia Seizures Home Medications epinephrine 0.3 mg IM X1 PRN 06/30/18 [History Last Taken Unknown] albuterol sulfate 1 - 2 puff INHALATION Q4H PRN PRN 08/12/18 [History Last Taken 08/12/18] [id number] [] 1 tab PO DAILY 02/28/21 [History Last Taken Unknown] Allergy/AdvReac Type Severity Reaction Status Date / Time nut - unspecified Allergy Other Verified 04/14/21 16:21 onion Allergy Anaphylaxis Verified 04/14/21 16:21 Penicillins Allergy Hives Verified 04/14/21 16:21 venom-honey bee Allergy Anaphylaxis Verified 04/14/21 16:21 cigarette smoke AdvReac Unknown Verified 04/14/21 16:21 raisins AdvReac Unknown Uncoded 04/14/21 16:21 Family History Mother Seizures Mental health problem Brother Seizures Surgical History History of tonsillectomy Social History Smoking Status: Former smoker alcohol intake: never ROS ROS ED ROS Narrative Past medical history: Reviewed Medications: Reviewed Social history: Noncontributory Review of systems: All systems negative except as indicated General: No fever Eyes: No visual changes ENT: No upper airway congestion, normal voice Neck: No neck pain Cardiovascular: No chest pain Respiratory: No shortness of breath or cough Gastrointestinal: No abdominal pain, nausea vomiting or diarrhea Genitourinary: No dysuria Musculoskeletal: Denies myalgias no difficulty with ambulation Skin: No rash Neurological: Seizure with loss of memory, otherwise no focal deficits. Psych: No recent behavioral changes Hematologic: No easy bleeding or easy bruising EXAM Physical Exam Narrative Exam Narrative: Physical exam General: Well nourished, Well developed, No Acute Distress. She seems in good spirits. Head: Normocephalic, Atraumatic Eyes: Conjunctiva not pale ENT: Moist mucous membranes Neck: Supple, Nontender, No lymphadenopathy Cardiovascular: Regular rate, Regular rhythm Respiratory: No distress, CTA bilaterally Abdomen: Soft, Nontender, Nondistended Back: Nontender, Normal Inspection. Negative for: CVA tenderness Extremities: Nontender, No edema Skin: Normal color, No rash Neurological: Alert, Normal Strength, Normal Sensation Psychological: Normal affect Const Vital Signs: 04/14/21 16:18 Temperature 97.8 F Temperature Source Oral Pulse Rate 87 Respiratory Rate 20 H Blood Pressure 116/89 H Blood Pressure Mean 98 Pulse Ox 98 Oxygen Delivery Method Room Air MDM MDM MDM Narrative Medical decision making narrative: Patient has a normal work-up. Lactic acid is normal which makes me believe that this was an nonepileptiform seizure she appears well. I reassured her she wants a referral to a new neurologist therefore will refer in town. Lab Data Labs: Laboratory Results - last 24 hr 04/14/21 04/14/21 04/14/21 16:35 16:35 16:35 WBC 6.9 RBC 3.90 L Hgb 10.7 L Hct 33.8 L MCV 86.7 MCH 27.4 MCHC 31.7 L RDW Std Deviation 44.8 H RDW Coeff of Adelfo 14.2 Plt Count 189 MPV 10.9 Immature Gran % (Auto) 0.600 Neut % (Auto) 71.4 H Lymph % (Auto) 17.9 L [place] % (Auto) 7.8 Eos % (Auto) 1.6 Baso % (Auto) 0.7 Absolute Neuts (auto) 5.0 Absolute Lymphs (auto) 1.24 Nucleated RBC % 0 Sodium 134 L Potassium 3.6 Chloride 103 Carbon Dioxide 26.0 Anion Gap 5 BUN 7 Creatinine 0.64 Estim Creat Clear Calc 123.88 Est GFR (MDRD) Af Amer 148 Est GFR (MDRD) Non-Af 122 BUN/Creatinine Ratio 11.0 Glucose 88 Lactic Acid 1.2 Calcium 8.9 Total Bilirubin 0.30 AST 7 L ALT 12 L Alkaline Phosphatase 43 L Total Protein 7.2 Albumin 3.4 Globulin 3.8 Albumin/Globulin Ratio 0.9 Discharge Plan Triage Chief Complaint: Seizure ED Provider: Cirilo Landon Dx/Rx/DC Orders Prescriptions: No Action epinephrine 0.3 MG syringe 0.3 mg IM X1 PRN (Reason: Allergies) RF: 0 albuterol sulfate 1 PUFF inhaler 1 - 2 puff Inhalation Q4H PRN PRN (Reason: Asthma) RF: 0 1 mg Tablet 1 tab PO DAILY RF: 0 Primary Care Provider: Fabrizio Patel NP
[2021-04-14 17:06] LABS: Absolute Lymphocyte Count 1.24 X10^3/uL (0.83-4.51); Basophil# 0.05 X10^3/uL; Basophil% 0.7 % (0-1); Eosinophil# 0.11 X10^3/uL; Eosinophils% 1.6 % (0-5); Hematocrit 33.8 % (37-47); Hemoglobin 10.7 g/dL (12.0-15.0); Lymphocyte # 1.24 X10^3/ul (0.83-4.51); Lymphocyte % 17.9 % (19-41); Mean Corp Hgb Conc 31.7 g/dL (32-36); Mean Corpuscular Hgb 27.4 pg (27.0-32.0); Mean Corpuscular Volume 86.7 fL (81-99); Mean Platelet Vol. 10.9 fl (6.2-12.0); Monocyte# 0.54 X10^3/uL; Monocyte% 7.8 % (0-10); NRBC Flagged by Analyzer 0 % (0-5); Neutrophil # 4.96 X10^3/uL (2.7-7.7); Neutrophil % 71.4 % (47-70); Platelet Count 189 K/mm3 (150-450); RBC Distribution Width CV 14.2 % (11.6-14.6); RBC Distribution Width SD 44.8 fl (35.1-43.9); White Blood Count 6.9 K/mm3 (4.4-11.0)
[2021-04-14 17:23] LABS: ALB/GLOB Ratio 0.9 RATIO (0.9-2.4); AST(SGOT) 7 U/L (15-37); Alanine Aminotransfer ALT/SGPT 12 U/L (13-56); Albumin, Serum 3.4 g/dL (3.2-5.0); Alkaline Phosphatase 43 U/L (45-117); Anion Gap 5 (5-15); BUN 7 mg/dL (7-18); Calcium,Total 8.9 mg/dL (8.5-10.1); Chloride 103 mmol/L (98-107); Creatinine, Serum 0.64 mg/dL (0.55-1.02); EST Glomerular Filtration Rate 122 mL/min (>60); Est Glom Filt Rate - Afr Amer 148 mL/min (>60); Estimated Creatinine Clearance 123.88 ml/min; Globulin 3.8 g/dL (2.2-4.2); Glucose 88 mg/dL (74-106); Potassium 3.6 mmol/L (3.5-5.1); Protein, Total 7.2 g/dL (6.4-8.2); Sodium Level 134 mmol/L (136-145)
[2021-04-14 17:25] LABS: Lactic Acid 1.2 mmol/L (0.4-1.9)
[2021-04-14 18:03] VITALS: BP 124/77; PULSE 68; RESP 15; O2SAT 98
== END 2021-04-14 18:04 | disposition home or self-care (01) ==
PROVIDERS: Emergency Provider Emergency Medicine; PCP Nurse Practitioner Family
DX: O99.350 Diseases of the nervous system complicating pregnancy, unspecified trimester (principal); G40.909 Epilepsy, unspecified, not intractable, without status epilepticus; O99.519 Diseases of the respiratory system complicating pregnancy, unspecified trimester; J45.909 Unspecified asthma, uncomplicated; Z79.899 Other long term (current) drug therapy; Z87.891 Personal history of nicotine dependence; Z3A.00 Weeks of gestation of pregnancy not specified
CPT/HCPCS: 36415; 80053; 83605; 85025; 99284

== ENCOUNTER 2021-05-22 23:04 | Emergency (ER) | payer MEDICAID, SELFPAY ==
[2021-05-22 23:06] VITALS: BP 120/90; PULSE 86; RESP 16; TEMP 36.9; O2SAT 99; BMI 20.5
--- NOTE | 2021-05-22 23:36 | EDS_ITS ---
HPI HPI - Female History of Present Illness Chief Complaint: Vag Bld, Preg Informant: patient Narrative Narrative: Patient presents with pelvic cramping and some vaginal bleeding. This is a at approximately 18 weeks. She [facility] in [place]. She has had previous ultrasounds but is due for an ultrasound for dating and sex determination this coming week. She denies having prior problems with the . This evening she urinated at about 4 or 5:00. When she wiped there was what she describes as a little bit of pink Hugo-Aid about an inch around on the tissue. She then developed some cramping that is both sides. It does go a little bit around to the back. No nausea vomiting or change in bowel habits. No fevers or chills. No loss of fluid. No discharge. Nothing really makes the symptoms better or worse. In addition to the chart, her surgeries are also an umbilical hernia done when she was about 4 years old. [facility] Medical History Anxiety Asthma PTSD (post-traumatic stress disorder) Schizophrenia Seizures no medical history Home Medications epinephrine 0.3 mg IM X1 PRN 06/30/18 [History Last Taken Unknown] albuterol sulfate 1 - 2 puff INHALATION Q4H PRN PRN 08/12/18 [History Last Taken 08/12/18] [id number] [] 1 tab PO DAILY 02/28/21 [History Last Taken Unknown] nitrofurantoin monohyd/m-cryst [Macrobid] 100 mg PO Q12H 10 Days #20 cap 05/23/21 [Rx Last Taken Unknown] phenazopyridine [Pyridium] 100 mg PO TID PRN #6 tab 05/23/21 [Rx Last Taken Unknown] Allergy/AdvReac Type Severity Reaction Status Date / Time nut - unspecified Allergy Other Verified 05/22/21 23:11 onion Allergy Anaphylaxis Verified 05/22/21 23:11 Penicillins Allergy Hives Verified 05/22/21 23:11 venom-honey bee Allergy Anaphylaxis Verified 05/22/21 23:11 cigarette smoke AdvReac Unknown Verified 05/22/21 23:11 raisins AdvReac Unknown Uncoded 05/22/21 23:11 Family History Mother Seizures Mental health problem Brother Seizures Surgical History History of tonsillectomy Social History Smoking Status: Former smoker alcohol intake: never ROS ROS ED Constitutional Constitutional ED: Denies chills or fever(s) Eyes Eyes: Denies change in vision ENT ENT ED: Denies rhinorrhea or sore throat Cardiovascular Cardiovascular: Denies chest pain or racing heartbeat Respiratory/Chest Respiratory/Chest: Denies cough or dyspnea Gastrointestinal Gastrointestinal: Reports abdominal pain; Denies diarrhea, nausea or vomiting Genitourinary Genitourinary ED: Reports hematuria; Denies dysuria or urinary frequency Musculoskeletal Musculoskeletal: Denies arthralgias Integumentary Denies rash Neurologic Neurologic: Denies headache(s), paresthesias or weakness Psychiatric Psychiatric: Reports anxiety Hematologic/Lymphatic Hematologic/Lymphatic: Denies easy bleeding or easy bruising EXAM Physical Exam Const Vital Signs: 05/22/21 23:06 05/23/21 01:57 05/23/21 03:34 Temperature 98.5 F Temperature Source Oral Pulse Rate 86 90 Respiratory Rate 16 16 14 Blood Pressure 120/90 H 125/74 H Blood Pressure Mean 100 91 Pulse Ox 99 99 Oxygen Delivery Method Room Air Positive well nourished and well developed General Appearance ED: well developed and NAD HEENT Reports moist mucous membranes Eyes EOMs intact bilaterally Chest Wall inspection of chest normal Resp normal respiratory effort and clear to auscultation bilaterally Cardio regular rate and regular rhythm GI normal to inspection, nondistended, normoactive bowel sounds and soft to palpation GI Narrative: Patient does have some mild nonfocal lower abdominal tenderness. Uterus does appear to be 18 weeks just a little bit below the umbilicus. Uterus is not markedly tender. no CVA tenderness Back/Spine no CVA tenderness Extremity normal to inspection Neuro oriented x3 Sensorium / Orientation: alert Psych mental status grossly normal Mood & Affect: anxious Skin no rashes or lesions noted MDM MDM MDM Narrative Medical decision making narrative: My plan was to do pelvic exam shortly after I saw the patient. However, we then got multiple squads and multiple patients in. They are still coming in. We are pursuing work-up with her blood work. Hemoglobin shows some mild anemia. Blood type is a positive. Patient was given Tylenol. We are awaiting ultrasounds. Ultrasound showed single live IUP with good heartbeat. Renal ultrasound did show some hydro which is normal with . However, her bladder was large. She did urinate after this. A bladder scan was done that showed about 200 cc. But she then went to urinate again. She states she is emptying her bladder normally. She urinates frequently and does not feel for afterwards. She feels better right now. Although she still has some suprapubic discomfort. I think her symptoms are likely related to this UTI. She had blood in her urine. She has greater 100 white cells with cloudy urine and positive leukocyte esterase. She is penicillin allergic. We will treat her with Macrobid. This is a category B drug as is phenazopyridine. She already has a follow-up with her physician this week. We discussed returning with increasing discomfort, any fevers chills. If she develops any nausea or vomiting. Right now she has suprapubic discomfort with some pink-tinged urine and no other complaint. Lab Data Attestation: I reviewed the patient's lab results. Labs: Laboratory Results - last 24 hr 05/22/21 05/22/21 05/22/21 00:00 02:25 23:35 WBC 7.2 RBC 3.47 L Hgb 9.8 L Hct 30.5 L MCV 87.9 MCH 28.2 MCHC 32.1 RDW Std Deviation 43.7 RDW Coeff of Adelfo 13.6 Plt Count 174 MPV 10.9 Immature Gran % (Auto) 0.600 Neut % (Auto) 59.9 Lymph % (Auto) 29.5 [place] % (Auto) 7.1 Eos % (Auto) 2.2 Baso % (Auto) 0.7 Absolute Neuts (auto) 4.3 Absolute Lymphs (auto) 2.12 Nucleated RBC % 0 Urine Color Yellow Urine Clarity Sl. Cloudy Urine pH 7.0 Ur Specific [place] 1.010 Urine Protein 15 H Urine Glucose (UA) Normal Urine Ketones 150 A* Urine Occult Blood 25 H Urine Nitrite Negative Urine Bilirubin Negative Urine Urobilinogen Normal Ur Leukocyte Esterase 500 H Urine RBC 0-5 SEEN Urine WBC >100 SEEN Ur Squamous Epith Cells 10-25 SEEN Ur Renal Epithelial Cell 0-5 SEEN Urine Bacteria 2+ Urine Mucus 0 SEEN Blood Type A POSITIVE Radiography Diagnostic Testing: Radiology Impression Obstetrics Ultrasound 05/23/21 00:12 IMPRESSION: age by current US: 18 weeks, 4 days. ABIGAIL by current US: 10/20/2021. Estimated weight: 259 grams, +/- 39 grams, 59 percentile. Electronically Signed: Mukesh Mccarty MD at 3:06 EDT Tel , Service support , Renal Ultrasound 05/23/21 00:12 IMPRESSION: There is mild hydronephrosis of the right kidney. Electronically Signed: Mukesh Mccarty MD at 2:55 EDT Tel , Service support , Discharge Plan Triage Chief Complaint: Vag Bld, Preg ED Provider: Elvin Stewart Dx/Rx/DC Orders Clinical Impression: UTI in Instructions: Urinary Tract Infections in Women Prescriptions: New phenazopyridine [Pyridium] 100 mg tablet 100 mg PO TID PRN (Reason: pain) Qty: 6 RF: 0 nitrofurantoin monohyd/m-cryst [Macrobid] 100 mg capsule 100 mg PO Q12H 10 Days Qty: 20 RF: 0 No Action epinephrine 0.3 MG syringe 0.3 mg IM X1 PRN (Reason: Allergies) RF: 0 albuterol sulfate 1 PUFF inhaler 1 - 2 puff Inhalation Q4H PRN PRN (Reason: Asthma) RF: 0 1 mg Tablet 1 tab PO DAILY RF: 0 Primary Care Provider: Fabrizio Patel NP Referrals: Fabrizio Patel SOFTWARE TECHNICAL LEAD, SOFTWARE TECHNICAL LEAD-C [Primary Care Provider] - Activity Restrictions/Additional Instructions: See your art history professor as soon as possible this week. Disposition Disposition: Home, Self Care
[2021-05-23] MEDS: Acetaminophen 500 MG Tablet 1000 MG PO (00:01)
[2021-05-23 00:10] LABS: Absolute Lymphocyte Count 2.12 X10^3/uL (0.83-4.51); Absolute Neutrophil Count 4.3 X10^3/uL (2.0-7.7); Basophil# 0.05 X10^3/uL; Basophil% 0.7 % (0-1); Eosinophil# 0.16 X10^3/uL; Eosinophils% 2.2 % (0-5); Hematocrit 30.5 % (37-47); Hemoglobin 9.8 g/dL (12.0-15.0); Lymphocyte # 2.12 X10^3/ul (0.83-4.51); Lymphocyte % 29.5 % (19-41); Mean Corp Hgb Conc 32.1 g/dL (32-36); Mean Corpuscular Hgb 28.2 pg (27.0-32.0); Mean Corpuscular Volume 87.9 fL (81-99); Mean Platelet Vol. 10.9 fl (6.2-12.0); Monocyte# 0.51 X10^3/uL; Monocyte% 7.1 % (0-10); NRBC Flagged by Analyzer 0 % (0-5); Neutrophil % 59.9 % (47-70); Platelet Count 174 K/mm3 (150-450); RBC Distribution Width CV 13.6 % (11.6-14.6); RBC Distribution Width SD 43.7 fl (35.1-43.9); Red Blood Count 3.47 M/mm3 (4.2-5.4); White Blood Count 7.2 K/mm3 (4.4-11.0)
--- NOTE | 2021-05-23 00:12 | US_ITS ---
STUDY: RENAL ULTRASOUND - COMPLETE REASON FOR EXAM: Female, 25 years old. pain TECHNIQUE: Ultrasound evaluation of the kidneys was performed with real-time and static graham-scale imaging. COMPARISON: None. FINDINGS: RIGHT KIDNEY: Normal location of the right kidney, which is normal in size. The right kidney measures 9.8 x 4.1 x 4.3 cm. There is a normal cortex of the right kidney. The renal cortex measures 1.1 cm. There is no right renal mass or cyst. There are no right renal calculi. There is mild hydronephrosis of the right kidney. DISTAL RIGHT URETER: There is non-visualization of the distal right ureter. There is no demonstrated right ureterovesical junction calculus. There is no demonstrated right ureteral jet. LEFT KIDNEY: Normal location of the left kidney, which is normal in size. The left kidney measures 9.7 x 5.5 x 5.1 cm. There is a normal cortex of the left kidney. The renal cortex measures 1.1 cm. There is no left renal mass or cyst. There are no left renal calculi. There is no left hydronephrosis. DISTAL LEFT URETER: There is non-visualization of the distal left ureter. There is no demonstrated left ureterovesical junction calculus. There is no demonstrated left ureteral jet. AORTA: There is no demonstrated aneurysm.. I.V.C.: The IVC is patent. BLADDER: The distended urinary bladder has a volume of 497 ml. There is a normal wall thickness of the distended urinary bladder. There is no demonstrated mass within the urinary bladder. There are no demonstrated bladder calculi. US/Kidney and Bladder IMPRESSION: There is mild hydronephrosis of the right kidney. Electronically Signed: Mukesh Mccarty MD at 2:55 EDT Tel , Service support ,
--- NOTE | 2021-05-23 00:12 | US_ITS ---
STUDY: SECOND AND THIRD TRIMESTER OBSTETRICAL ULTRASOUND - LIMITED REASON FOR EXAM: Female, 25 years old pain PRIOR ULTRASOUND: None. TECHNIQUE: TECHNICAL QUALITY: Adequate. FINDINGS: There is a single intrauterine fetus. The fetus is in a cephalic presentation. There is demonstrated cardiac activity with a heart rate of 143 bpm. There is a normal amniotic fluid volume. The largest amniotic fluid pocket measures 3.8 cm. The amniotic fluid index (JAKE) is LOUTH cm. The placenta is posterior in location and is not low lying. There are Grade 1 placental changes. The cervix measures 3.1 cm in length. BIOMETRY: BPD: 4.1: 18 weeks, 4 days HC: 15.9: 18 weeks, 5 days AC: 13.5: 18 weeks, 6 days FL: 2.8: 18 weeks, 4 days Age by LMP: 18 weeks, 5 days. ABIGAIL by LMP: 10/19/2021. age by current US: 18 weeks, 4 days. ABIGAIL by current US: 10/20/2021. Estimated weight: 259 grams, +/- 39 grams, 59 percentile. US/OB Limited With Biometrics IMPRESSION: age by current US: 18 weeks, 4 days. ABIGAIL by current US: 10/20/2021. Estimated weight: 259 grams, +/- 39 grams, 59 percentile. Electronically Signed: Mukesh Mccarty MD at 3:06 EDT Tel , Service support ,
[2021-05-23 01:57] VITALS: BP 125/74; PULSE 90; RESP 16; O2SAT 99
[2021-05-23 02:35] LABS: Mucous, Urine 0 SEEN /hpf (<or=2+)
[2021-05-23 02:52] LABS: Color, Urine Yellow (Yellow); Glucose, Dipstick Normal (Normal); Leukocyte Esterase-Dipstick 500 /ul (Negative); Nitrite-Dipstick Negative (Negative); Occult Blood-Urine 25 /ul (Negative); Protein-Dipstick 15 mg/dl (Negative); Urine Bilirubin Dipstick Negative (Negative); Urine Clarity Sl. Cloudy (Clear); Urine Urobilinogen Normal (Normal)
[2021-05-23 03:12] LABS: Ketone-Dipstick 150 mg/dl (Negative)
[2021-05-23 03:15] LABS: Bacteria 2+ /hpf (None Seen); Red Blood Cells-Urine 0-5 SEEN /hpf (0-5); Renal Epithelial Cells 0-5 SEEN /hpf (0-5); Squamous Epithelial Cells - UA 10-25 SEEN /hpf (5-10); White Blood Cells >100 SEEN /hpf (0-5)
[2021-05-23 03:34] VITALS: RESP 14
[2021-05-23] MEDS: Nitrofurantoin Macrocrystals 100 MG Capsule PO (04:05)
[2021-05-23] MEDS: Phenazopyridine 95 MG Tablet PO (04:05)
[2021-05-23 04:07] VITALS: BP 96/56; PULSE 67; RESP 16; O2SAT 100
== END 2021-05-23 04:10 | disposition home or self-care (01) ==
PROVIDERS: Emergency Provider Emergency Medicine; PCP Nurse Practitioner Family
DX: O23.42 Unspecified infection of urinary tract in pregnancy, second trimester (principal); R31.9 Hematuria, unspecified; O99.012 Anemia complicating pregnancy, second trimester; D64.9 Anemia, unspecified; O99.512 Diseases of the respiratory system complicating pregnancy, second trimester; J45.909 Unspecified asthma, uncomplicated; Z79.899 Other long term (current) drug therapy; Z87.891 Personal history of nicotine dependence; Z3A.18 18 weeks gestation of pregnancy
CPT/HCPCS: 76770; 76816; 81001; 85025; 86900; 86901; 99285

== ENCOUNTER 2021-05-29 13:01 | Emergency (ER) | payer MEDICAID, SELFPAY ==
[2021-05-29 13:02] VITALS: BP 96/68; PULSE 76; RESP 14; TEMP 36.7; O2SAT 99; BMI 20.5
[2021-05-29 13:23] LABS: Absolute Lymphocyte Count 1.66 X10^3/uL (0.83-4.51); Absolute Neutrophil Count 4.9 X10^3/uL (2.0-7.7); Basophil# 0.04 X10^3/uL; Basophil% 0.5 % (0-1); Eosinophil# 0.14 X10^3/uL; Eosinophils% 1.9 % (0-5); Hematocrit 30.9 % (37-47); Lymphocyte # 1.66 X10^3/ul (0.83-4.51); Lymphocyte % 22.8 % (19-41); Mean Corp Hgb Conc 32.4 g/dL (32-36); Mean Corpuscular Hgb 28.2 pg (27.0-32.0); Mean Corpuscular Volume 87.3 fL (81-99); Monocyte# 0.51 X10^3/uL; NRBC Flagged by Analyzer 0 % (0-5); Neutrophil # 4.87 X10^3/uL (2.7-7.7); Platelet Count 209 K/mm3 (150-450); RBC Distribution Width CV 13.5 % (11.6-14.6); RBC Distribution Width SD 43.3 fl (35.1-43.9); Red Blood Count 3.54 M/mm3 (4.2-5.4); White Blood Count 7.3 K/mm3 (4.4-11.0)
--- NOTE | 2021-05-29 13:26 | EDS_ITS ---
HPI History of Present Illness Chief Complaint: Seizure Informant: patient Narrative Narrative: Patient is a 25-year-old G1, P0 at 19 weeks who currently presents to the emergency department for seizure. She states that she felt like she got overheated as she was walking outside. She ended up having a seizure at the gas station. She is unsure the length of the seizure today. 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 She was taken off her antiepileptic medications since being . She has had multiple seizures since then. Patient feels tired at this time but otherwise has no other complaints. Denies any headache, vision change. No injury. No chest pain, shortness of breath. No abdominal pain or nausea/vomiting. She denies any vaginal bleeding or discharge. No urinary symptoms. No abdominal pain. She does feel kicking in her abdomen. PFSH PFSH Medical History Anxiety Asthma PTSD (post-traumatic stress disorder) Schizophrenia Seizures Home Medications epinephrine 0.3 mg IM X1 PRN 06/30/18 [History Last Taken Unknown] albuterol sulfate 1 - 2 puff INHALATION Q4H PRN PRN 08/12/18 [History Last Taken 08/12/18] [id number] [] 1 tab PO DAILY 02/28/21 [History Last Taken Unknown] Allergy/AdvReac Type Severity Reaction Status Date / Time nut - unspecified Allergy Other Verified 05/29/21 13:06 onion Allergy Anaphylaxis Verified 05/29/21 13:06 Penicillins Allergy Hives Verified 05/29/21 13:06 venom-honey bee Allergy Anaphylaxis Verified 05/29/21 13:06 cigarette smoke AdvReac Unknown Verified 05/29/21 13:06 raisins AdvReac Unknown Uncoded 05/29/21 13:06 Family History Mother Seizures Mental health problem Brother Seizures Surgical History History of tonsillectomy Social History Smoking Status: Former smoker alcohol intake: never ROS ROS ED Constitutional Constitutional ED: Denies chills or fever(s) Eyes Eyes: Denies change in vision ENT ENT ED: Denies epistaxis or rhinorrhea Cardiovascular Cardiovascular: Denies chest pain or palpitations Respiratory/Chest Respiratory/Chest: Denies cough, dyspnea or dyspnea on exertion Gastrointestinal Gastrointestinal: Denies abdominal pain, diarrhea, nausea or vomiting Genitourinary Genitourinary ED: Denies dysuria, hematuria or urinary frequency Musculoskeletal Musculoskeletal: Denies back pain or neck pain Integumentary Denies rash Neurologic Neurologic: Denies dizziness, headache(s) or weakness EXAM Physical Exam Const Vital Signs: 05/29/21 13:02 Temperature 98.1 F Temperature Source Oral Pulse Rate 76 Respiratory Rate 14 Blood Pressure 96/68 Blood Pressure Mean 77 Pulse Ox 99 Oxygen Delivery Method Room Air Positive well nourished and well developed General Appearance ED: well developed and NAD HEENT Reports normocephalic and head/scalp atraumatic Eyes PERRL and EOMs intact bilaterally Neck supple General: Negative for tenderness Resp normal respiratory effort and clear to auscultation bilaterally Auscultation: Negative for rales, rhonchi or wheezes Cardio regular rate, regular rhythm and no murmurs GI normal to inspection, nondistended, normoactive bowel sounds and non-tender GI Narrative: Gravid abdomen Palpation: soft; Negative for guarding or rebound tenderness present Extremity normal to inspection General Extremety ED: Negative for edema or tenderness General Extremity: Negative for edema Neuro oriented x3, CN's II-XII intact bilaterally and no sensory deficits noted Sensorium / Orientation: alert Motor Exam: strength 5/5 throughout Psych mental status grossly normal Skin no rashes or lesions noted MDM MDM MDM Narrative Medical decision making narrative: Patient presents to the emergency department after a seizure today. She is currently 19 weeks . Vital signs within normal limits upon arrival. She has a benign physical exam. She is getting back to baseline. Basic lab work was obtained along with heart tones. Patient's lab work did not reveal a significant acute abnormality. heart tones in the 150s per nurse. She is resting comfortably. No repeat seizure-like activity throughout ED stay. Will discharge home in stable condition. She is to follow-up with her PCP as well as her neurologist. Return precautions reviewed with her. She understands and is agreeable with this plan. All questions were answered. Lab Data Labs: Laboratory Results - last 24 hr 05/29/21 05/29/21 12:45 12:45 WBC 7.3 RBC 3.54 L Hgb 10.0 L Hct 30.9 L MCV 87.3 MCH 28.2 MCHC 32.4 RDW Std Deviation 43.3 RDW Coeff of Adelfo 13.5 Plt Count 209 MPV 11.0 Immature Gran % (Auto) 0.800 Neut % (Auto) 67.0 Lymph % (Auto) 22.8 [place] % (Auto) 7.0 Eos % (Auto) 1.9 Baso % (Auto) 0.5 Absolute Neuts (auto) 4.9 Absolute Lymphs (auto) 1.66 Nucleated RBC % 0 Sodium 136 Potassium 3.8 Chloride 106 Carbon Dioxide 21.0 Anion Gap 9 BUN 6 L Creatinine 0.60 Estim Creat Clear Calc 137.20 Est GFR (MDRD) Af Amer 159 Est GFR (MDRD) Non-Af 131 BUN/Creatinine Ratio 10.0 Glucose 80 Calcium 9.0 Discharge Plan Triage Chief Complaint: Seizure ED Provider: Hiram Cohen Dx/Rx/DC Orders Clinical Impression: Seizure Instructions: ED Seizure, Recurrent (Adult) Prescriptions: No Action epinephrine 0.3 MG syringe 0.3 mg IM X1 PRN (Reason: Allergies) RF: 0 albuterol sulfate 1 PUFF inhaler 1 - 2 puff Inhalation Q4H PRN PRN (Reason: Asthma) RF: 0 1 mg Tablet 1 tab PO DAILY RF: 0 Primary Care Provider: Fabrizio Patel NP Referrals: Fabrizio Patel NP, [employer] HUSBANDR[employer] TEACHER-[employer] [Primary Care Provider] - As soon as possible Disposition Disposition: Home, Self Care Discharge Date/Time: 05/29/21 15:14
[2021-05-29 13:36] LABS: Anion Gap 9 (5-15); BUN 6 mg/dL (7-18); Chloride 106 mmol/L (98-107); EST Glomerular Filtration Rate 131 mL/min (>60); Est Glom Filt Rate - Afr Amer 159 mL/min (>60); Glucose 80 mg/dL (74-106); Potassium 3.8 mmol/L (3.5-5.1); Sodium Level 136 mmol/L (136-145)
== END 2021-05-29 15:14 | disposition home or self-care (01) ==
PROVIDERS: Emergency Provider Emergency Medicine; PCP Nurse Practitioner Family
DX: O99.352 Diseases of the nervous system complicating pregnancy, second trimester (principal); G40.909 Epilepsy, unspecified, not intractable, without status epilepticus; Z3A.19 19 weeks gestation of pregnancy; Z87.891 Personal history of nicotine dependence
CPT/HCPCS: 80048; 85025; 99285